=== PATIENT | male | born 1945 | race Caucasian/White ===

== ENCOUNTER 2016-05-18 08:36 | Inpatient (IN) | payer OTHER, MEDICARE ==
[~2016-05-18] VITALS: Ht 172.7 cm; Wt 145.0 kg
[2016-05-18] VITALS (10 sets, daily range): BP systolic 106–174; BP diastolic 49–76
[~2016-05-18 08:36] MED LIST: ACTOS15 MG PO; ADVAIR 250/501 DISK IH; ADVAIR HFA120 INHALA IH; ALEVE220 MG PO; AUGMENTIN500 MG PO; Advair HFA 115/21 IH; Amoxicillin PO; BACTRIM,SEPT1 TABLET PO; COMBIVENT INH14.7 GM IH; COMBIVENT RESPIM4 GM IH; COMBIVENT200 INHALA IH; DEXILANT60 MG PO; FAMOTIDINE20 M1 PO; FAMOTIDINE20 MG PO; FUROSEMIDE40 MG PO; FUROSEMIDE80 MG PO; INVOKANA300 MG PO; JANUVIA100 MG PO; KENALOG,ARISTOC15 GM PO; LANTUS 10100 UNITS/ SC; LANTUS 3 M100 UNITS/ PO; LANTUS 3 M100 UNITS/ SC; LANTUS 3 M100 UNITS1 SC; LANTUS100 UNIT/1 SQ; LASIX80 MG PO; LIPITOR40 MG PO; LOPRESSOR25 MG PO; LOSARTAN POTASS25 MG PO; Lasix PO; Lotrimin Cream TP; METOLAZONE10 MG PO; METOPROLOL SUCC25 MG PO; NAPROXEN SODIU220 MG PO; NIASPAN,SLO-N1000 MG PO; NIASPAN,SLO-NI500 MG PO; NOVOLIN,HU100 UNITS/ SC; OMEPRAZOLE40 M1 PO; PEPCID20 MG PO; PLAVIX75 MG PO; POTASSIUM CHLO10 ME3 PO; PRINIVIL10 MG PO; PROAIR HFA8.5 GM IH; Pepcid PO; SIMVASTATIN80 M1 PO; SIMVASTATIN80 MG PO; SPIRIVA1 INHALATI IH; THEO-24300 MG PO; THEO-DUR,THEOC300 MG PO; THEOPHYLLINE A300 M1 PO; TRAMADOL HCL50 MG PO; Tylenol Regular Stre PO; VENTOLIN HFA18 GM IH; ZESTRIL,PRINIVI10 MG PO; ZOLPIDEM TARTRAT5 MG PO; metoprolol PO
[2016-05-18 09:27] LABS: HEMATOCRIT 47.1 % (38.0-50.0); MCH 29.1 PG (29.0-34.0); MCHC 31.6 G/DL (30.0-36.0); MEAN PLAT.VOLUME 9.7 uM^3 (9.0-12.4); PLATELET COUNT 212 K/uL (156-360); RBC DIS.WIDTH-CV 16.9 % (11.8-14.6); RED BLOOD COUNT 5.12 M/uL (4.00-5.50); WHITE BLOOD COUNT 9.9 K/uL (4.1-10.2)
[2016-05-18 09:40] LABS: CHLORIDE 95 mEq/L (99-109); POTASSIUM 3.3 mEq/L (3.7-5.4); SODIUM 139 mEq/L (136-147)
[2016-05-18 09:41] LABS: GLUCOSE 111 mg/dL (70-99)
[2016-05-18 09:43] LABS: ANION GAP 14 MEQ/L (2-14)
[2016-05-18 09:45] LABS: GFR ESTIMATE (CALCULATED) 37 mL/min/
[2016-05-18 09:46] LABS: UREA NITROGEN (BUN) 35 mg/dL (9-23)
[2016-05-18] MEDS ORDERED: POTASSIUM CHLO20 ME2 PO (11:10)
[2016-05-18] MEDS ORDERED: SIMVASTATIN40 MG PO (11:10)
[2016-05-18] MEDS ORDERED: TYLENOL EXTRA500 MG PO (11:11)
[2016-05-18] MEDS ORDERED: THEO-DUR,THEOC300 MG PO (11:11)
[2016-05-18] MEDS ORDERED: LISINOPRIL2.5 MG PO (11:12)
[2016-05-18] MEDS ORDERED: LOSARTAN POTASS25 MG PO (11:12)
[2016-05-18] MEDS ORDERED: ADVAIR 250/501 DISK IH (11:12)
[2016-05-18 13:42] LABS: BILIRUBIN NEGATIVE; BLOOD NEGATIVE; COLOR YELLOW ((YELLOW)); GLUCOSE (STRIP) 250; KETONES NEGATIVE; LEUKOCYTES NEGATIVE; NITRITE NEGATIVE; PROTEIN (STRIP) 30; SPECIFIC GRAVITY 1.027 (1.000-1.030)
[2016-05-18 13:44] LABS: ADD MIUA? NO; UCUL ADDED? NO
[2016-05-18 16:19] LABS: POINT-OF-CARE METER ID UU13113748
[2016-05-18 16:39] LABS: METH RESISTANT S AUREUS PCR NEGATIVE (NEGATIVE)
[2016-05-18 16:40] LABS: PROBE CHECK PASS; SPECIMEN PROCESSING CONTROL PASS
[2016-05-18 17:54] LABS: MAGNESIUM 1.8 mg/dl (1.3-2.7)
[2016-05-18 18:41] LABS: INFLUENZA A VIRAL ANTIGEN POSITIVE; INFLUENZA B VIRAL ANTIGEN NEGATIVE
[2016-05-19] VITALS (9 sets, daily range): BP systolic 102–143; BP diastolic 47–79
[2016-05-19 06:12] LABS: ANION GAP 12 MEQ/L (2-14); CHLORIDE 99 MEQ/L (99-109); GFR ESTIMATE (CALCULATED) 46 mL/min/; MAGNESIUM 1.9 mg/dl (1.3-2.7); POTASSIUM 3.9 MEQ/L (3.7-5.4); SAMPLE HEMOLYSIS CHECK 0; SAMPLE ICTERIC CHECK 0; SAMPLE LIPEMIA CHECK 0; SODIUM 139 MEQ/L (136-147); UREA NITROGEN (BUN) 30 mg/dL (9-23)
[2016-05-19 06:14] LABS: EOSINOPHIL (%) 0 % (0-5); HEMATOCRIT 47.8 % (38.0-50.0); IMMATURE GRANULOCYTE (%) 1.1 % (0.0-0.7); IMMATURE GRANULOCYTE COUNT 0.1 K/uL; LYMPHOCYTE COUNT 0.8 K/uL (1.0-2.8); MCH 30.3 PG (29.0-34.0); MCHC 31.6 G/DL (30.0-36.0); MCV 95.8 FL (86-99); MEAN PLAT.VOLUME 10.4 uM^3 (9.0-12.4); MONOCYTE (%) 2.3 % (3-12); MONOCYTE COUNT 0.1 K/uL (0-0.8); NEUTROPHIL COUNT 3.8 K/uL (1.8-6.4); PLATELET COUNT 174 K/uL (156-360); RBC DIS.WIDTH-CV 16.7 % (11.8-14.6); RBC DIS.WIDTH-SD 58.5 % (39-53); RED BLOOD COUNT 4.99 M/uL (4.00-5.50)
[2016-05-19 06:18] LABS: WHITE BLOOD COUNT 4.8 K/uL (4.1-10.2)
[2016-05-19 06:19] LABS: GLUCOSE 209 mg/dL (70-99)
[2016-05-19 10:50] LABS: INTERNAL CONTROL VALID? YES
[2016-05-19 22:52] LABS: POINT-OF-CARE METER ID UU13113748
[2016-05-20] VITALS (7 sets, daily range): BP systolic 120–155; BP diastolic 58–73
[2016-05-20 06:42] LABS: ALKALINE PHOSPHATASE 53 IU/L (3-129); ANION GAP 10 MEQ/L (2-14); CHLORIDE 98 MEQ/L (99-109); GFR ESTIMATE (CALCULATED) 49 mL/min/; GLUCOSE 199 mg/dL (70-99); POTASSIUM 3.8 MEQ/L (3.7-5.4); SAMPLE HEMOLYSIS CHECK 0; SAMPLE ICTERIC CHECK 0; SAMPLE LIPEMIA CHECK 0; SODIUM 138 MEQ/L (136-147); TOTAL BILIRUBIN 0.5 MG/DL (0.0-1.0); UREA NITROGEN (BUN) 35 mg/dL (9-23)
[2016-05-20 06:43] LABS: MAGNESIUM 2.2 mg/dl (1.3-2.7)
[2016-05-20 06:53] LABS: EOSINOPHIL (%) 0 % (0-5); HEMATOCRIT 46.9 % (38.0-50.0); IMMATURE GRANULOCYTE (%) 0.5 % (0.0-0.7); LYMPHOCYTE COUNT 1.1 K/uL (1.0-2.8); MCH 29.1 PG (29.0-34.0); MCHC 30.9 G/DL (30.0-36.0); MCV 94.2 FL (86-99); MONOCYTE (%) 12.3 % (3-12); NEUTROPHIL (%) 74.2 % (45-76); NEUTROPHIL COUNT 6.3 K/uL (1.8-6.4); PLATELET COUNT 163 K/uL (156-360); RBC DIS.WIDTH-CV 16.1 % (11.8-14.6); RBC DIS.WIDTH-SD 55.2 % (39-53); RED BLOOD COUNT 4.98 M/uL (4.00-5.50)
[2016-05-20 06:54] LABS: WHITE BLOOD COUNT 8.5 K/uL (4.1-10.2)
[2016-05-20 21:26] LABS: POINT-OF-CARE METER ID UU14162636
[2016-05-21] VITALS: BP 132/63
[2016-05-21 03:58] VITALS: BP 152/91
[2016-05-21 07:28] LABS: ALKALINE PHOSPHATASE 59 IU/L (3-129); ANION GAP 8 MEQ/L (2-14); CHLORIDE 98 MEQ/L (99-109); GFR ESTIMATE (CALCULATED) > 59 mL/min/; GLUCOSE 130 mg/dL (70-99); MAGNESIUM 2.1 mg/dl (1.3-2.7); POTASSIUM 3.6 MEQ/L (3.7-5.4); SAMPLE HEMOLYSIS CHECK 0; SAMPLE ICTERIC CHECK 0; SAMPLE LIPEMIA CHECK 0; SODIUM 140 MEQ/L (136-147); TOTAL BILIRUBIN 0.5 MG/DL (0.0-1.0); UREA NITROGEN (BUN) 28 mg/dL (9-23)
[2016-05-21 07:31] LABS: EOSINOPHIL (%) 0.6 % (0-5); HEMATOCRIT 47.6 % (38.0-50.0); IMMATURE GRANULOCYTE (%) 0.4 % (0.0-0.7); MCHC 32.1 G/DL (30.0-36.0); MCV 93.3 FL (86-99); MEAN PLAT.VOLUME 10.7 uM^3 (9.0-12.4); MONOCYTE (%) 12.2 % (3-12); MONOCYTE COUNT 0.9 K/uL (0-0.8); NEUTROPHIL COUNT 4.2 K/uL (1.8-6.4); PLATELET COUNT 171 K/uL (156-360); RBC DIS.WIDTH-CV 15.8 % (11.8-14.6); RBC DIS.WIDTH-SD 53.9 % (39-53); WHITE BLOOD COUNT 7.2 K/uL (4.1-10.2)
[2016-05-21 08:12] VITALS: BP 120/72
[2016-05-21 11:32] VITALS: BP 120/70
[2016-05-21 15:55] VITALS: BP 140/68
[2016-05-21 23:09] LABS: POINT-OF-CARE METER ID UU14174225
[2016-05-21 23:48] VITALS: BP 141/67
[2016-05-22 06:52] LABS: HEMATOCRIT 49.9 % (38.0-50.0); MCH 29.4 PG (29.0-34.0); MCHC 31.3 G/DL (30.0-36.0); MEAN PLAT.VOLUME 9.8 uM^3 (9.0-12.4); PLATELET COUNT 135 K/uL (156-360); RBC DIS.WIDTH-CV 15.8 % (11.8-14.6); RBC DIS.WIDTH-SD 53.9 % (39-53); RED BLOOD COUNT 5.31 M/uL (4.00-5.50); WHITE BLOOD COUNT 7.6 K/uL (4.1-10.2)
[2016-05-22 06:58] LABS: BASOPHIL COUNT 0.1 K/uL (0-0.1); EOSINOPHIL (%) 0.5 % (0-5); IMMATURE GRANULOCYTE (%) 0.5 % (0.0-0.7); LYMPHOCYTE COUNT 2.5 K/uL (1.0-2.8); MONOCYTE (%) 10.1 % (3-12); MONOCYTE COUNT 0.8 K/uL (0-0.8); NEUTROPHIL (%) 54.8 % (45-76); NEUTROPHIL COUNT 4.2 K/uL (1.8-6.4)
[2016-05-22 07:04] LABS: ANION GAP 10 MEQ/L (2-14); CHLORIDE 100 MEQ/L (99-109); GFR ESTIMATE (CALCULATED) > 59 mL/min/; GLUCOSE 137 mg/dL (70-99); POTASSIUM 3.9 MEQ/L (3.7-5.4); SAMPLE HEMOLYSIS CHECK 0; SAMPLE ICTERIC CHECK 0; SAMPLE LIPEMIA CHECK 0; SODIUM 141 MEQ/L (136-147); UREA NITROGEN (BUN) 24 mg/dL (9-23)
[2016-05-22 08:00] VITALS: BP 120/62
[2016-05-22 11:14] LABS: POINT-OF-CARE METER ID UU14174225
[2016-05-22 11:22] VITALS: BP 120/68
[2016-05-22 15:35] VITALS: BP 155/73
[2016-05-22 19:27] VITALS: BP 154/72
[2016-05-22 23:46] VITALS: BP 152/72
[2016-05-23 06:52] LABS: EOSINOPHIL (%) 0.9 % (0-5); EOSINOPHIL COUNT 0.1 K/uL (0-0.3); HEMATOCRIT 48.2 % (38.0-50.0); IMMATURE GRANULOCYTE (%) 0.5 % (0.0-0.7); LYMPHOCYTE COUNT 2.5 K/uL (1.0-2.8); MCH 29.6 PG (29.0-34.0); MCHC 31.7 G/DL (30.0-36.0); MCV 93.2 FL (86-99); MEAN PLAT.VOLUME 10.2 uM^3 (9.0-12.4); MONOCYTE (%) 9.6 % (3-12); MONOCYTE COUNT 0.8 K/uL (0-0.8); NEUTROPHIL (%) 57.2 % (45-76); NEUTROPHIL COUNT 4.6 K/uL (1.8-6.4); PLATELET COUNT 156 K/uL (156-360); RBC DIS.WIDTH-CV 15.3 % (11.8-14.6); RBC DIS.WIDTH-SD 52.5 % (39-53); RED BLOOD COUNT 5.17 M/uL (4.00-5.50)
[2016-05-23 07:19] LABS: ANION GAP 7 MEQ/L (2-14); CHLORIDE 98 MEQ/L (99-109); GFR ESTIMATE (CALCULATED) > 59 mL/min/; GLUCOSE 164 mg/dL (70-99); SAMPLE HEMOLYSIS CHECK 0; SAMPLE ICTERIC CHECK 0; SAMPLE LIPEMIA CHECK 0; SODIUM 141 MEQ/L (136-147); UREA NITROGEN (BUN) 25 mg/dL (9-23)
[2016-05-23 07:51] VITALS: BP 139/73
[2016-05-23 11:15] VITALS: BP 130/78
[2016-05-23] MEDS ORDERED: KETOCONAZOLE60 GM TP (14:41)
[2016-05-23] MEDS ORDERED: SPIRIVA RESPIMAT4 GM IH (14:41)
[2016-05-23] MEDS ORDERED: CEFDINIR300 MG PO (14:47)
[2016-05-23] MEDS ORDERED: PREDNISONE20 MG PO (14:50)
[2016-05-23] MEDS ORDERED: ROBITUSSIN100 MG/5 M PO (14:56)
== END 2016-05-23 16:11 | disposition home or self-care (01) | DRG 193 ==
LOC: EME → EDBD 08:36 → EME 08:36 → 4WEST 14:00 → 5SOUTH 14:00 → EDOF 14:00 → 4WEST 15:08 → 5SOUTH 05-20 21:22
PROVIDERS: Emergency Medicine; Hospitalist; Internal Medicine; Internal Medicine Nephrology
PROC: 5A09357 Assistance with Respiratory Ventilation, Less than 24 Consecutive Hours, Continuous Positive Airway Pressure (ICD-10-PCS; principal; 2016-05-19)
DX: J10.00 Influenza due to other identified influenza virus with unspecified type of pneumonia (principal); J44.0 Chronic obstructive pulmonary disease with (acute) lower respiratory infection; J18.9 Pneumonia, unspecified organism; J96.20 Acute and chronic respiratory failure, unspecified whether with hypoxia or hypercapnia; N17.9 Acute kidney failure, unspecified; J44.1 Chronic obstructive pulmonary disease with (acute) exacerbation; I13.0 Hypertensive heart and chronic kidney disease with heart failure and stage 1 through stage 4 chronic kidney disease, or unspecified chronic kidney disease; I50.9 Heart failure, unspecified; E11.22 Type 2 diabetes mellitus with diabetic chronic kidney disease; N18.3 Chronic kidney disease, stage 3 (moderate); I87.2 Venous insufficiency (chronic) (peripheral); L97.819 Non-pressure chronic ulcer of other part of right lower leg with unspecified severity; E87.6 Hypokalemia; E11.40 Type 2 diabetes mellitus with diabetic neuropathy, unspecified; E78.5 Hyperlipidemia, unspecified; I25.10 Atherosclerotic heart disease of native coronary artery without angina pectoris; J45.909 Unspecified asthma, uncomplicated; K21.9 Gastro-esophageal reflux disease without esophagitis; E66.01 Morbid (severe) obesity due to excess calories; G47.33 Obstructive sleep apnea (adult) (pediatric); I95.9 Hypotension, unspecified; F17.200 Nicotine dependence, unspecified, uncomplicated; I89.0 Lymphedema, not elsewhere classified; L30.8 Other specified dermatitis; Z95.5 Presence of coronary angioplasty implant and graft; Z99.81 Dependence on supplemental oxygen; I25.2 Old myocardial infarction; Z95.0 Presence of cardiac pacemaker; Z79.02 Long term (current) use of antithrombotics/antiplatelets; Z79.4 Long term (current) use of insulin; Z68.42 Body mass index [BMI] 45.0-49.9, adult
CPT/HCPCS: 71010; 71020; 80048; 80053; 81003; 82948; 83605; 83735; 84100; 85025; 85027; 87040; 87070; 87205; 87449; 87502; 87641; 93005; 94640; 94640 76; 94660; 94760; 94799; 99202; 99281; 99285; J0456; J0696; J1644; J1815; J2543; J2920; J2930; J3370; J7030; J7050; J7512; S0028

== ENCOUNTER 2016-05-30 10:41 | Inpatient (IN) | payer OTHER, MEDICARE ==
[~2016-05-30] VITALS: Ht 172.7 cm; Wt 137.4 kg
[~2016-05-30 10:41] MED LIST changes: +CEFDINIR300 MG PO; +KETOCONAZOLE60 GM TP; +LISINOPRIL2.5 MG PO; +POTASSIUM CHLO20 ME2 PO; +PREDNISONE20 MG PO; +ROBITUSSIN100 MG/5 M PO; +SIMVASTATIN40 MG PO; +SPIRIVA RESPIMAT4 GM IH; +TYLENOL EXTRA500 MG PO
[2016-05-30 12:29] LABS: EOSINOPHIL (%) 0.4 % (0-5); EOSINOPHIL COUNT 0.1 K/uL (0-0.3); HEMATOCRIT 51.3 % (38.0-50.0); IMMATURE GRANULOCYTE (%) 0.5 % (0.0-0.7); IMMATURE GRANULOCYTE COUNT 1.2 K/uL; LYMPHOCYTE COUNT 1.7 K/uL (1.0-2.8); MCH 29.4 PG (29.0-34.0); MCHC 32.4 G/DL (30.0-36.0); MEAN PLAT.VOLUME 10.4 uM^3 (9.0-12.4); MONOCYTE (%) 6.3 % (3-12); MONOCYTE COUNT 1.4 K/uL (0-0.8); NEUTROPHIL (%) 85.2 % (45-76); NEUTROPHIL COUNT 19.1 K/uL (1.8-6.4); RBC DIS.WIDTH-CV 16.3 % (11.8-14.6); RBC DIS.WIDTH-SD 53.3 % (39-53); RED BLOOD COUNT 5.64 M/uL (4.00-5.50)
[2016-05-30 12:30] LABS: PLATELET COUNT 268 K/uL (156-360); WHITE BLOOD COUNT 22.5 K/uL (4.1-10.2)
[2016-05-30 12:38] LABS: CHLORIDE 96 mEq/L (99-109); SODIUM 139 mEq/L (136-147)
[2016-05-30 12:40] LABS: GLUCOSE 102 mg/dL (70-99)
[2016-05-30 12:41] LABS: ANION GAP 14 MEQ/L (2-14)
[2016-05-30 12:43] LABS: GFR ESTIMATE (CALCULATED) 46 mL/min/
[2016-05-30 12:44] LABS: UREA NITROGEN (BUN) 33 mg/dL (9-23)
[2016-05-30 12:46] LABS: CREATINE KINASE 73 IU/L (1-294)
[2016-05-30 12:47] LABS: TROP-I INTERPRETATION NEGATIVE; TROPONIN-I 0.05 ng/mL (0.0-0.30)
[2016-05-30 13:23] LABS: ADD MIUA? YES; BILIRUBIN NEGATIVE; BLOOD NEGATIVE; COLOR YELLOW ((YELLOW)); GLUCOSE (STRIP) 100; KETONES NEGATIVE; LEUKOCYTES TRACE; NITRITE NEGATIVE; PROTEIN (STRIP) NEGATIVE; SPECIFIC GRAVITY 1.014 (1.000-1.030); UROBILINOGEN 0.2 MG/DL (0.2-1.0)
[2016-05-30 13:25] LABS: HEMATOLOGY COMMENT 1 SMEAR COMPATIBLE; USER ID CL
[2016-05-30 14:11] LABS: BACTERIA 1+ /HPF; CASTS NONE SEEN /LPF; CRYSTALS NONE SEEN; EPITHELIAL CELLS NONE SEEN /HPF; MUCUS NONE SEEN /LPF; RED BLOOD CELLS 0-5 /HPF (0-5); UCUL ADDED? NO; WHITE BLOOD CELLS 0-5 /HPF (0-5)
[2016-05-30] MEDS ORDERED: PREDNISONE20 MG PO (14:59)
[2016-05-30 15:19] LABS: BASE EXCESS 9.2 mEq/L (-3 to +3); BICARBONATE 37.3 mEq/L (22-26); CARBOXY HGB 3.2 % (0-5); COMMENTS - BLOOD GASES +C; DEVICE HFNC; O2 FLOW 10 L/MIN; PCO2 63 mm Hg (35-45); PO2 104 mm Hg (80-100); SITE RR +A; TOTAL RESP RATE 18 resp/min; pH 7.38 (7.35-7.45)
[2016-05-30 17:00] VITALS: BP 128/83
[2016-05-30 17:25] LABS: POINT-OF-CARE METER ID UU13113781; POINT-OF-CARE USER ID NUTSLF44
[2016-05-30 19:15] VITALS: BP 122/76
[2016-05-30 21:29] LABS: POINT-OF-CARE METER ID UU13113698
[2016-05-30 23:51] VITALS: BP 115/58
[2016-05-31 04:05] VITALS: BP 110/60
[2016-05-31 07:01] LABS: EOSINOPHIL (%) 0 % (0-5); HEMATOCRIT 47.2 % (38.0-50.0); IMMATURE GRANULOCYTE (%) 0.4 % (0.0-0.7); LYMPHOCYTE COUNT 1.6 K/uL (1.0-2.8); MCH 29.2 PG (29.0-34.0); MCHC 31.6 G/DL (30.0-36.0); MCV 92.5 FL (86-99); MEAN PLAT.VOLUME 10.4 uM^3 (9.0-12.4); MONOCYTE (%) 2.9 % (3-12); MONOCYTE COUNT 0.3 K/uL (0-0.8); NEUTROPHIL COUNT 8.5 K/uL (1.8-6.4); PLATELET COUNT 194 K/uL (156-360); RBC DIS.WIDTH-CV 15.7 % (11.8-14.6); RBC DIS.WIDTH-SD 53.4 % (39-53); WHITE BLOOD COUNT 10.5 K/uL (4.1-10.2)
[2016-05-31 07:17] VITALS: BP 103/50
[2016-05-31 07:21] LABS: ALKALINE PHOSPHATASE 65 IU/L (3-129); ANION GAP 11 MEQ/L (2-14); CHLORIDE 94 MEQ/L (99-109); GFR ESTIMATE (CALCULATED) 49 mL/min/; POTASSIUM 3.9 MEQ/L (3.7-5.4); SAMPLE HEMOLYSIS CHECK 0; SAMPLE ICTERIC CHECK 0; SAMPLE LIPEMIA CHECK 0; SODIUM 135 MEQ/L (136-147); TOTAL BILIRUBIN 0.6 MG/DL (0.0-1.0); UREA NITROGEN (BUN) 41 mg/dL (9-23)
[2016-05-31 07:23] LABS: GLUCOSE 253 mg/dL (70-99)
[2016-05-31 07:52] LABS: INTERNAL CONTROL VALID? YES
[2016-05-31 07:57] LABS: POINT-OF-CARE METER ID UU13113698; POINT-OF-CARE USER ID ENVKC36
[2016-05-31 11:53] LABS: POINT-OF-CARE METER ID UU13113781
[2016-05-31 11:58] VITALS: BP 123/58
[2016-05-31 16:27] LABS: POINT-OF-CARE METER ID UU13113781; POINT-OF-CARE USER ID ENVKC36
[2016-05-31 17:17] VITALS: BP 122/57
[2016-05-31 20:53] LABS: POINT-OF-CARE METER ID UU14174216
[2016-05-31 20:54] VITALS: BP 113/59
[2016-05-31 23:28] VITALS: BP 122/57
[2016-06-01 03:57] VITALS: BP 140/59
[2016-06-01 06:36] LABS: HEMATOCRIT 48.1 % (38.0-50.0); MCH 29.6 PG (29.0-34.0); MCHC 31.6 G/DL (30.0-36.0); MCV 93.8 FL (86-99); MEAN PLAT.VOLUME 10.8 uM^3 (9.0-12.4); PLATELET COUNT 205 K/uL (156-360); RBC DIS.WIDTH-CV 15.6 % (11.8-14.6); RBC DIS.WIDTH-SD 53.5 % (39-53); RED BLOOD COUNT 5.13 M/uL (4.00-5.50); WHITE BLOOD COUNT 9.9 K/uL (4.1-10.2)
[2016-06-01 06:59] LABS: ANION GAP 10 MEQ/L (2-14); CHLORIDE 94 MEQ/L (99-109); GFR ESTIMATE (CALCULATED) 53 mL/min/; GLUCOSE 246 mg/dL (70-99); SAMPLE HEMOLYSIS CHECK 0; SAMPLE ICTERIC CHECK 0; SAMPLE LIPEMIA CHECK 0; SODIUM 137 MEQ/L (136-147); UREA NITROGEN (BUN) 41 mg/dL (9-23)
[2016-06-01 07:43] LABS: POINT-OF-CARE USER ID ENVKC36
[2016-06-01 08:00] VITALS: BP 128/63
[2016-06-01] MEDS ORDERED: DELTASONE20 M1 PO (08:14)
[2016-06-01] MEDS ORDERED: MEDROL DOSEPAK4 MG PO (08:15)
[2016-06-01] MEDS ORDERED: LEVAQUIN750 MG PO (08:16)
[2016-06-01 11:33] LABS: POINT-OF-CARE USER ID ENVKC36
== END 2016-06-01 13:30 | disposition home or self-care (01) | DRG 871 ==
LOC: EME 10:41 → 4EAST 14:25 → EDOF 14:25 → 4EAST 16:55
PROVIDERS: Emergency Medicine; Hospitalist; Internal Medicine
PROC: 5A09357 Assistance with Respiratory Ventilation, Less than 24 Consecutive Hours, Continuous Positive Airway Pressure (ICD-10-PCS; principal; 2016-05-31)
DX: A41.9 Sepsis, unspecified organism (principal); J96.21 Acute and chronic respiratory failure with hypoxia; J18.9 Pneumonia, unspecified organism; J44.1 Chronic obstructive pulmonary disease with (acute) exacerbation; N17.9 Acute kidney failure, unspecified; J44.0 Chronic obstructive pulmonary disease with (acute) lower respiratory infection; I83.228 Varicose veins of left lower extremity with both ulcer of other part of lower extremity and inflammation; Z68.42 Body mass index [BMI] 45.0-49.9, adult; S81.802A Unspecified open wound, left lower leg, initial encounter; E11.22 Type 2 diabetes mellitus with diabetic chronic kidney disease; N18.3 Chronic kidney disease, stage 3 (moderate); I12.9 Hypertensive chronic kidney disease with stage 1 through stage 4 chronic kidney disease, or unspecified chronic kidney disease; I87.8 Other specified disorders of veins; G47.33 Obstructive sleep apnea (adult) (pediatric); Z95.0 Presence of cardiac pacemaker; I25.10 Atherosclerotic heart disease of native coronary artery without angina pectoris; Z95.1 Presence of aortocoronary bypass graft; F17.200 Nicotine dependence, unspecified, uncomplicated; Z99.81 Dependence on supplemental oxygen; K21.9 Gastro-esophageal reflux disease without esophagitis; E66.01 Morbid (severe) obesity due to excess calories
CPT/HCPCS: 36600; 71010; 71020; 71250; 80048; 80048 91; 80053; 81003; 82550; 82803; 82948; 83605; 83880; 84484; 85025; 85027; 87040; 87070; 87205; 87449; 93005; 94640; 94640 76; 94660; 94760; 94799; 99202; 99281; 99285; J0692; J0696; J1644; J1815; J2930; J3370; J7030; J7050

== ENCOUNTER 2016-08-05 14:49 | Inpatient (IN) | payer OTHER, MEDICARE ==
[~2016-08-05] VITALS: Ht 172.7 cm; Wt 139.8 kg
[~2016-08-05 14:49] MED LIST changes: +DELTASONE20 M1 PO; +LEVAQUIN750 MG PO; +MEDROL DOSEPAK4 MG PO
[2016-08-05 15:42] LABS: HEMATOCRIT 48.8 % (38.0-50.0); MCH 28.8 PG (29.0-34.0); MCHC 32.4 G/DL (30.0-36.0); MCV 89.1 FL (86-99); MEAN PLAT.VOLUME 9.6 uM^3 (9.0-12.4); PLATELET COUNT 291 K/uL (156-360); RBC DIS.WIDTH-CV 17.5 % (11.8-14.6); RBC DIS.WIDTH-SD 55.4 % (39-53); RED BLOOD COUNT 5.48 M/uL (4.00-5.50); WHITE BLOOD COUNT 19.9 K/uL (4.1-10.2)
[2016-08-05 16:03] LABS: CHLORIDE 92 mEq/L (99-109); POTASSIUM 2.9 mEq/L (3.7-5.4); SODIUM 137 mEq/L (136-147)
[2016-08-05 16:05] LABS: GLUCOSE 103 mg/dL (70-99)
[2016-08-05 16:06] LABS: ANION GAP 14 MEQ/L (2-14)
[2016-08-05 16:07] LABS: TOTAL BILIRUBIN 1.2 mg/dL (0.0-1.0)
[2016-08-05 16:09] LABS: ALKALINE PHOSPHATASE 71 IU/L (3-129); GFR ESTIMATE (CALCULATED) 35 mL/min/
[2016-08-05 16:10] LABS: UREA NITROGEN (BUN) 52 mg/dL (9-23)
[2016-08-05 16:12] LABS: LIPASE 10 U/L (1.0-51.0)
[2016-08-05 16:18] LABS: TROP-I INTERPRETATION NEGATIVE; TROPONIN-I 0.07 ng/mL (0.0-0.30)
[2016-08-05] MEDS ORDERED: SPIRIVA1 INHALATI IH (16:46)
[2016-08-05 17:42] LABS: COMMENTS - BLOOD GASES A+C+; DEVICE NC; O2 FLOW 4 L/MIN; SITE RR; TOTAL RESP RATE 18 resp/min
[2016-08-05 17:48] LABS: PCO2 47 mm Hg (35-45); PO2 79 mm Hg (80-100); pH 7.46 (7.35-7.45)
[2016-08-05 17:49] LABS: BASE EXCESS 8.2 mEq/L (-3 to +3); BICARBONATE 34.8 mEq/L (22-26); HEMOGLOBIN 15.1 (12.5-16.6); METHEMOGLOBIN 0.9 % (0-1.5)
[2016-08-05 17:50] LABS: CARBOXY HGB 5.1 % (0-5)
[2016-08-05 17:57] LABS: INFLUENZA A VIRAL ANTIGEN NEGATIVE; INFLUENZA B VIRAL ANTIGEN NEGATIVE
[2016-08-05 20:09] VITALS: BP 117/67
[2016-08-06] VITALS (8 sets, daily range): BP systolic 105–131; BP diastolic 53–71
[2016-08-06 07:20] LABS: EOSINOPHIL (%) 0.7 % (0-5); EOSINOPHIL COUNT 0.1 K/uL (0-0.3); HEMATOCRIT 47.5 % (38.0-50.0); IMMATURE GRANULOCYTE (%) 0.8 % (0.0-0.7); IMMATURE GRANULOCYTE COUNT 0.1 K/uL; INSTRUMENT ABS NEUTROPHIL CT 11.1 K/uL; MCH 28.2 PG (29.0-34.0); MCHC 30.9 G/DL (30.0-36.0); MCV 91.2 FL (86-99); MONOCYTE (%) 11.5 % (3-12); MONOCYTE COUNT 1.9 K/uL (0-0.8); NEUTROPHIL (%) 68.5 % (45-76); NEUTROPHIL COUNT 11.1 K/uL (1.8-6.4); NRBC (%) 0.1 /100 WBC (0-0); PLATELET COUNT 239 K/uL (156-360); RBC DIS.WIDTH-CV 17.1 % (11.8-14.6); RBC DIS.WIDTH-SD 57.8 % (39-53); RED BLOOD COUNT 5.21 M/uL (4.00-5.50); WHITE BLOOD COUNT 16.3 K/uL (4.1-10.2)
[2016-08-06 07:44] LABS: ANION GAP 11 MEQ/L (2-14); CHLORIDE 97 MEQ/L (99-109); GFR ESTIMATE (CALCULATED) 40 mL/min/; GLUCOSE 153 mg/dL (70-99); SAMPLE HEMOLYSIS CHECK 0; SAMPLE ICTERIC CHECK 0; SAMPLE LIPEMIA CHECK 0; SODIUM 135 MEQ/L (136-147); UREA NITROGEN (BUN) 49 mg/dL (9-23)
[2016-08-06 07:46] LABS: POTASSIUM 3.8 MEQ/L (3.7-5.4)
[2016-08-06 09:37] LABS: ADD MIUA? YES; BILIRUBIN NEGATIVE; BLOOD NEGATIVE; COLOR YELLOW ((YELLOW)); GLUCOSE (STRIP) >=500; KETONES NEGATIVE; LEUKOCYTES TRACE; NITRITE NEGATIVE; PROTEIN (STRIP) NEGATIVE; SPECIFIC GRAVITY 1.009 (1.000-1.030); UROBILINOGEN 0.2 MG/DL (0.2-1.0)
[2016-08-06 09:58] LABS: BACTERIA RARE /HPF; EPITHELIAL CELLS RARE /HPF; HYALINE CASTS 0-5 /LPF; MUCUS TRACE /LPF; UCUL ADDED? NO; WHITE BLOOD CELLS 0-5 /HPF (0-5)
[2016-08-06 15:40] LABS: C DIFF TOXIN NEGATIVE (NEGATIVE)
[2016-08-06 15:43] LABS: PROBE CHECK PASS; SPECIMEN PROCESSING CONTROL PASS
[2016-08-07 03:29] VITALS: BP 136/69
[2016-08-07 07:26] LABS: ANION GAP 9 MEQ/L (2-14); CHLORIDE 96 MEQ/L (99-109); GFR ESTIMATE (CALCULATED) 45 mL/min/; GLUCOSE 206 mg/dL (70-99); HEMATOCRIT 46.2 % (38.0-50.0); MCH 28.3 PG (29.0-34.0); MCV 91.5 FL (86-99); MEAN PLAT.VOLUME 9.8 uM^3 (9.0-12.4); PLATELET COUNT 217 K/uL (156-360); POTASSIUM 3.9 MEQ/L (3.7-5.4); RBC DIS.WIDTH-CV 16.5 % (11.8-14.6); RBC DIS.WIDTH-SD 55.8 % (39-53); RED BLOOD COUNT 5.05 M/uL (4.00-5.50); SAMPLE HEMOLYSIS CHECK 0; SAMPLE ICTERIC CHECK 0; SAMPLE LIPEMIA CHECK 0; SODIUM 137 MEQ/L (136-147); UREA NITROGEN (BUN) 38 mg/dL (9-23)
[2016-08-07 07:41] LABS: WHITE BLOOD COUNT 8.9 K/uL (4.1-10.2)
[2016-08-07 07:54] VITALS: BP 129/64
[2016-08-07 11:59] VITALS: BP 128/62
[2016-08-07 16:00] VITALS: BP 129/64
[2016-08-07 20:00] VITALS: BP 178/81
[2016-08-08 00:52] VITALS: BP 127/61
[2016-08-08 03:34] VITALS: BP 125/60
[2016-08-08 07:06] LABS: EOSINOPHIL (%) 0 % (0-5); IMMATURE GRANULOCYTE (%) 0.6 % (0.0-0.7); IMMATURE GRANULOCYTE COUNT 0.1 K/uL; INSTRUMENT ABS NEUTROPHIL CT 7.3 K/uL; LYMPHOCYTE COUNT 1.1 K/uL (1.0-2.8); MCH 28.3 PG (29.0-34.0); MCHC 31.7 G/DL (30.0-36.0); MCV 89.3 FL (86-99); MEAN PLAT.VOLUME 10.5 uM^3 (9.0-12.4); MONOCYTE (%) 3.1 % (3-12); MONOCYTE COUNT 0.3 K/uL (0-0.8); NEUTROPHIL (%) 83.3 % (45-76); NEUTROPHIL COUNT 7.3 K/uL (1.8-6.4); PLATELET COUNT 281 K/uL (156-360); RBC DIS.WIDTH-CV 15.8 % (11.8-14.6); RBC DIS.WIDTH-SD 51.9 % (39-53); RED BLOOD COUNT 5.15 M/uL (4.00-5.50); WHITE BLOOD COUNT 8.8 K/uL (4.1-10.2)
[2016-08-08 07:20] LABS: ANION GAP 9 MEQ/L (2-14); CHLORIDE 96 MEQ/L (99-109); GFR ESTIMATE (CALCULATED) 58 mL/min/; GLUCOSE 197 mg/dL (70-99); SAMPLE HEMOLYSIS CHECK 0; SAMPLE ICTERIC CHECK 0; SAMPLE LIPEMIA CHECK 0; SODIUM 138 MEQ/L (136-147); UREA NITROGEN (BUN) 34 mg/dL (9-23)
[2016-08-08 08:02] VITALS: BP 134/68
[2016-08-08 10:58] VITALS: BP 132/62
[2016-08-08] MEDS ORDERED: CEFTIN500 MG PO (15:57)
[2016-08-08] MEDS ORDERED: PREDNISONE10 MG PO (16:02)
[2016-08-08 16:30] VITALS: BP 175/72
[2016-08-10] MEDS ORDERED: CEFTIN500 MG PO (14:39)
[2016-08-10] MEDS ORDERED: VENTOLIN HFA18 GM IH (14:40)
[2016-08-10] MEDS ORDERED: DEXILANT60 MG PO (14:40)
[2016-08-10] MEDS ORDERED: PREDNISONE PO (14:41)
[2016-08-10] MEDS ORDERED: PLAVIX75 MG PO (14:42)
== END 2016-08-08 17:30 | disposition home health service (06) | DRG 190 ==
LOC: EME 14:49 → EDOF 17:11 → 5SOUTH 18:38 → EDOF 18:38 → 5SOUTH 19:43
PROVIDERS: Emergency Medicine; Hospitalist; Internal Medicine; Internal Medicine Nephrology; Nurse Practitioner Adult Health; Nurse Practitioner Family
DX: J44.0 Chronic obstructive pulmonary disease with (acute) lower respiratory infection (principal); J18.9 Pneumonia, unspecified organism; J20.9 Acute bronchitis, unspecified; R91.8 Other nonspecific abnormal finding of lung field; K52.9 Noninfective gastroenteritis and colitis, unspecified; N17.9 Acute kidney failure, unspecified; I12.9 Hypertensive chronic kidney disease with stage 1 through stage 4 chronic kidney disease, or unspecified chronic kidney disease; N18.3 Chronic kidney disease, stage 3 (moderate); E11.22 Type 2 diabetes mellitus with diabetic chronic kidney disease; J44.1 Chronic obstructive pulmonary disease with (acute) exacerbation; J45.909 Unspecified asthma, uncomplicated; J96.10 Chronic respiratory failure, unspecified whether with hypoxia or hypercapnia; Z99.81 Dependence on supplemental oxygen; N28.1 Cyst of kidney, acquired; D72.829 Elevated white blood cell count, unspecified; E87.6 Hypokalemia; E86.0 Dehydration; E66.01 Morbid (severe) obesity due to excess calories; Z68.42 Body mass index [BMI] 45.0-49.9, adult; I25.10 Atherosclerotic heart disease of native coronary artery without angina pectoris; I25.2 Old myocardial infarction; Z95.1 Presence of aortocoronary bypass graft; E11.65 Type 2 diabetes mellitus with hyperglycemia; K21.9 Gastro-esophageal reflux disease without esophagitis; G47.33 Obstructive sleep apnea (adult) (pediatric); I87.2 Venous insufficiency (chronic) (peripheral); N47.1 Phimosis; F17.210 Nicotine dependence, cigarettes, uncomplicated; Z71.6 Tobacco abuse counseling; I50.9 Heart failure, unspecified; E78.5 Hyperlipidemia, unspecified; K76.0 Fatty (change of) liver, not elsewhere classified; K40.20 Bilateral inguinal hernia, without obstruction or gangrene, not specified as recurrent; Z95.0 Presence of cardiac pacemaker; Z95.5 Presence of coronary angioplasty implant and graft; Z79.02 Long term (current) use of antithrombotics/antiplatelets; Z79.4 Long term (current) use of insulin
CPT/HCPCS: 36600; 71020; 71250; 74176; 76770; 80048; 80053; 80198; 81003; 82570; 82803; 82948; 83605; 83690; 83880; 84156; 84484; 85025; 85027; 87493; 87502; 93005; 93970; 94640; 94640 76; 94660; 94799; 99202; 99281; 99285; J0456; J0696; J1644; J1815; J2270; J2405; J2543; J2930; J7030; J7040; J7050

== ENCOUNTER → 2016-08-14 | Outpatient (CLI) | payer OTHER, MEDICARE ==
[~2016-08-14] VITALS: Ht 172.7 cm; Wt 139.8 kg
[~2016-08-14] MED LIST changes: +CEFTIN500 MG PO; +PREDNISONE PO; +PREDNISONE10 MG PO
[2016-08-14 14:49] LABS: PROTHROMBIN TIME 10.3 (9.2-11.2); PTT 27.8 (25-32)
[2016-08-14 14:50] LABS: HEMATOCRIT 51.4 % (38.0-50.0); MCH 28.4 PG (29.0-34.0); MCHC 31.9 G/DL (30.0-36.0); MCV 89.1 FL (86-99); MEAN PLAT.VOLUME 9.1 uM^3 (9.0-12.4); NRBC (%) 0.1 /100 WBC (0-0); PLATELET COUNT 250 K/uL (156-360); RBC DIS.WIDTH-CV 17.1 % (11.8-14.6); RED BLOOD COUNT 5.77 M/uL (4.00-5.50)
[2016-08-14 14:51] LABS: WHITE BLOOD COUNT 18.8 K/uL (4.1-10.2)
[2016-08-14 15:14] LABS: POINT-OF-CARE METER ID UU13113694
[2016-08-14 17:31] LABS: POINT-OF-CARE METER ID UU13113675; POINT-OF-CARE USER ID 515036437
== END | disposition home or self-care (01) ==
LOC: AMB 13:37
PROVIDERS: Internal Medicine Pulmonary Disease
PROC: 0B988ZX Drainage of Left Upper Lobe Bronchus, Via Natural or Artificial Opening Endoscopic, Diagnostic (ICD-10-PCS; principal; 2016-08-14)
DX: J40 Bronchitis, not specified as acute or chronic (principal); R06.02 Shortness of breath; J44.9 Chronic obstructive pulmonary disease, unspecified; E11.9 Type 2 diabetes mellitus without complications; I25.10 Atherosclerotic heart disease of native coronary artery without angina pectoris; E66.9 Obesity, unspecified; G47.33 Obstructive sleep apnea (adult) (pediatric)
CPT/HCPCS: 71010; 82948; 85027; 85610; 85730; 87070; 87077; 87116; 87205; 87206; J3010

== ENCOUNTER 2016-08-23 14:32 | Observation (INO) | payer OTHER, MEDICARE ==
[~2016-08-23] VITALS: Ht 172.7 cm; Wt 132.0 kg
[2016-08-23 15:20] LABS: HEMATOCRIT 49.7 % (38.0-50.0); MCH 28.6 PG (29.0-34.0); MCHC 32.2 G/DL (30.0-36.0); MCV 88.9 FL (86-99); MEAN PLAT.VOLUME 9.7 uM^3 (9.0-12.4); PLATELET COUNT 252 K/uL (156-360); RBC DIS.WIDTH-CV 16.5 % (11.8-14.6); RBC DIS.WIDTH-SD 53.7 % (39-53); RED BLOOD COUNT 5.59 M/uL (4.00-5.50); WHITE BLOOD COUNT 15.5 K/uL (4.1-10.2)
[2016-08-23 15:29] LABS: CHLORIDE 93 mEq/L (99-109); POTASSIUM 2.8 mEq/L (3.7-5.4); SODIUM 138 mEq/L (136-147)
[2016-08-23 15:30] LABS: GLUCOSE 146 mg/dL (70-99)
[2016-08-23 15:32] LABS: ANION GAP 18 MEQ/L (2-14)
[2016-08-23 15:34] LABS: GFR ESTIMATE (CALCULATED) 42 mL/min/
[2016-08-23 15:35] LABS: UREA NITROGEN (BUN) 34 mg/dL (9-23)
[2016-08-23 15:38] LABS: D-DIMER ELISA 0.68 mg/L FEU (< 0.57); PROTHROMBIN TIME 10.5 (9.2-11.2); PTT 33.7 (25-32)
[2016-08-23 15:42] LABS: TROP-I INTERPRETATION NEGATIVE; TROPONIN-I 0.07 ng/mL (0.0-0.30)
[2016-08-23] MEDS ORDERED: METOLAZONE5 MG PO (16:57)
[2016-08-23] MEDS ORDERED: ADVAIR 250/501 DISK IH (16:57)
[2016-08-23] MEDS ORDERED: LOSARTAN POTASS25 MG PO (17:00)
[2016-08-23] MEDS ORDERED: PREDNISONE20 MG PO (17:00)
[2016-08-23 22:10] VITALS: BP 115/55
[2016-08-24 01:28] LABS: TROP-I INTERPRETATION NEGATIVE; TROPONIN-I 0.08 ng/mL (0.0-0.30)
[2016-08-24 03:52] VITALS: BP 109/55
[2016-08-24 04:46] LABS: HEMATOCRIT 47.3 % (38.0-50.0); MCH 28.7 PG (29.0-34.0); MCHC 31.7 G/DL (30.0-36.0); MCV 90.6 FL (86-99); MEAN PLAT.VOLUME 9.7 uM^3 (9.0-12.4); PLATELET COUNT 201 K/uL (156-360); RBC DIS.WIDTH-CV 16.5 % (11.8-14.6); RBC DIS.WIDTH-SD 54.7 % (39-53); RED BLOOD COUNT 5.22 M/uL (4.00-5.50); WHITE BLOOD COUNT 11.1 K/uL (4.1-10.2)
[2016-08-24 05:14] LABS: CHLORIDE 97 mEq/L (99-109); POTASSIUM 3.1 mEq/L (3.7-5.4); SODIUM 140 mEq/L (136-147)
[2016-08-24 05:16] LABS: GLUCOSE 127 mg/dL (70-99)
[2016-08-24 05:17] LABS: ANION GAP 13 MEQ/L (2-14)
[2016-08-24 05:20] LABS: GFR ESTIMATE (CALCULATED) 45 mL/min/
[2016-08-24 05:21] LABS: UREA NITROGEN (BUN) 34 mg/dL (9-23)
[2016-08-24 08:06] LABS: METH RESISTANT S AUREUS PCR NEGATIVE (NEGATIVE)
[2016-08-24 08:11] LABS: PROBE CHECK PASS; SPECIMEN PROCESSING CONTROL PASS
[2016-08-24 08:12] LABS: TROP-I INTERPRETATION NEGATIVE; TROPONIN-I 0.06 ng/mL (0.0-0.30)
[2016-08-24 08:15] VITALS: BP 98/53
[2016-08-24 08:33] LABS: POINT-OF-CARE METER ID UU13113831
[2016-08-24 11:46] VITALS: BP 101/54
[2016-08-24 12:48] LABS: POINT-OF-CARE METER ID UU13113831
== END 2016-08-24 16:00 | disposition home health service (06) ==
LOC: EME 14:32 → 5WEST 20:32 → EDOF 20:32 → 5WEST 21:44
PROVIDERS: Emergency Medicine; Hospitalist; Internal Medicine
DX: R07.9 Chest pain, unspecified (principal); N17.9 Acute kidney failure, unspecified; E87.6 Hypokalemia; E11.65 Type 2 diabetes mellitus with hyperglycemia; D72.829 Elevated white blood cell count, unspecified; I10 Essential (primary) hypertension; G47.33 Obstructive sleep apnea (adult) (pediatric); R91.8 Other nonspecific abnormal finding of lung field; E66.01 Morbid (severe) obesity due to excess calories; Z68.41 Body mass index [BMI] 40.0-44.9, adult; E78.5 Hyperlipidemia, unspecified; F17.200 Nicotine dependence, unspecified, uncomplicated
CPT/HCPCS: 71020; 80048; 82948; 84484; 85027; 85379; 85610; 85730; 87641; 93005; 94640; 94640 76; 94799; 99202; 99281; 99285; G0378; J1644; J1815; J7030; J7512

== ENCOUNTER 2017-03-27 09:27 | Inpatient (IN) | payer OTHER ==
[~2017-03-27] VITALS: Ht 172.7 cm; Wt 138.3 kg
[~2017-03-27 09:27] MED LIST changes: +METOLAZONE5 MG PO
[2017-03-27 09:51] LABS: HEMATOCRIT 44.1 % (38.0-50.0); MCH 29.4 PG (29.0-34.0); MCHC 31.3 G/DL (30.0-36.0); MCV 93.8 FL (86-99); MEAN PLAT.VOLUME 9.3 uM^3 (9.0-12.4); PLATELET COUNT 221 K/uL (156-360); RBC DIS.WIDTH-CV 17.5 % (11.8-14.6); RBC DIS.WIDTH-SD 59.5 % (39-53); WHITE BLOOD COUNT 10.3 K/uL (4.1-10.2)
[2017-03-27 10:02] LABS: CHLORIDE 98 mEq/L (99-109); POTASSIUM 3.2 mEq/L (3.7-5.4); SODIUM 138 mEq/L (136-147)
[2017-03-27 10:04] LABS: GLUCOSE 108 mg/dL (70-99)
[2017-03-27 10:05] LABS: ANION GAP 10 MEQ/L (2-14)
[2017-03-27 10:08] LABS: GFR ESTIMATE (CALCULATED) 45 mL/min/
[2017-03-27 10:09] LABS: UREA NITROGEN (BUN) 27 mg/dL (9-23)
[2017-03-27 10:14] LABS: TROP-I INTERPRETATION NEGATIVE; TROPONIN-I 0.07 ng/mL (0.0-0.30)
[2017-03-27] MEDS ORDERED: ELIQUIS5 MG PO (12:57)
[2017-03-27] MEDS ORDERED: LASIX40 MG PO (13:00)
[2017-03-27] MEDS ORDERED: ATROVENT 00.5 MG/2.5 IH (13:05)
[2017-03-27 17:34] LABS: TROP-I INTERPRETATION NEGATIVE; TROPONIN-I 0.24 ng/mL (0.0-0.30)
[2017-03-27 19:20] VITALS: BP 104/53
[2017-03-27 22:33] LABS: POINT-OF-CARE METER ID UU14314088
[2017-03-27 23:00] VITALS: BP 117/60
[2017-03-28 03:30] VITALS: BP 116/58
[2017-03-28 05:28] LABS: HEMATOCRIT 43.6 % (38.0-50.0); MCH 28.9 PG (29.0-34.0); MCHC 30.7 G/DL (30.0-36.0); MCV 94.2 FL (86-99); MEAN PLAT.VOLUME 9.8 uM^3 (9.0-12.4); PLATELET COUNT 214 K/uL (156-360); RBC DIS.WIDTH-CV 17.2 % (11.8-14.6); RBC DIS.WIDTH-SD 58.1 % (39-53); RED BLOOD COUNT 4.63 M/uL (4.00-5.50); WHITE BLOOD COUNT 7.9 K/uL (4.1-10.2)
[2017-03-28 05:46] LABS: TROP-I INTERPRETATION NEGATIVE; TROPONIN-I 0.08 ng/mL (0.0-0.30)
[2017-03-28 05:58] LABS: ALKALINE PHOSPHATASE 78 IU/L (3-129); ANION GAP 9 MEQ/L (2-14); CHLORIDE 97 MEQ/L (99-109); GFR ESTIMATE (CALCULATED) 49 mL/min/; SAMPLE HEMOLYSIS CHECK 0; SAMPLE ICTERIC CHECK 0; SAMPLE LIPEMIA CHECK 0; SODIUM 137 MEQ/L (136-147); TOTAL BILIRUBIN 0.7 MG/DL (0.0-1.0); UREA NITROGEN (BUN) 30 mg/dL (9-23)
[2017-03-28 05:59] LABS: GLUCOSE 181 mg/dL (70-99); POTASSIUM 4.2 MEQ/L (3.7-5.4)
[2017-03-28 08:02] LABS: POINT-OF-CARE METER ID UU13113698
[2017-03-28 09:30] VITALS: BP 120/58
[2017-03-28] MEDS ORDERED: AZITHROMYCIN500 M1 PO (10:38)
[2017-03-28] MEDS ORDERED: MEDROL DOSEPAK4 MG PO (10:38)
[2017-03-28 11:57] LABS: POINT-OF-CARE METER ID UU13113698
== END 2017-03-28 14:17 | disposition home or self-care (01) | DRG 189 ==
LOC: EME 09:27 → EDOF 12:48 → ENRESERV 13:57 → 4EAST 19:16
PROVIDERS: Internal Medicine; Internal Medicine Cardiovascular Disease
PROC: 5A09357 Assistance with Respiratory Ventilation, Less than 24 Consecutive Hours, Continuous Positive Airway Pressure (ICD-10-PCS; principal; 2017-03-27)
DX: J96.20 Acute and chronic respiratory failure, unspecified whether with hypoxia or hypercapnia (principal); J44.1 Chronic obstructive pulmonary disease with (acute) exacerbation; Z99.81 Dependence on supplemental oxygen; N17.9 Acute kidney failure, unspecified; I95.9 Hypotension, unspecified; M54.2 Cervicalgia; I48.0 Paroxysmal atrial fibrillation; I48.92 Unspecified atrial flutter; E11.22 Type 2 diabetes mellitus with diabetic chronic kidney disease; E11.42 Type 2 diabetes mellitus with diabetic polyneuropathy; E11.51 Type 2 diabetes mellitus with diabetic peripheral angiopathy without gangrene; I13.0 Hypertensive heart and chronic kidney disease with heart failure and stage 1 through stage 4 chronic kidney disease, or unspecified chronic kidney disease; I50.9 Heart failure, unspecified; N18.3 Chronic kidney disease, stage 3 (moderate); R10.9 Unspecified abdominal pain; E87.6 Hypokalemia; M47.9 Spondylosis, unspecified; G47.33 Obstructive sleep apnea (adult) (pediatric); E78.5 Hyperlipidemia, unspecified; I25.10 Atherosclerotic heart disease of native coronary artery without angina pectoris; K21.9 Gastro-esophageal reflux disease without esophagitis; F17.210 Nicotine dependence, cigarettes, uncomplicated; E66.01 Morbid (severe) obesity due to excess calories; Z68.42 Body mass index [BMI] 45.0-49.9, adult; I25.2 Old myocardial infarction; Z79.01 Long term (current) use of anticoagulants; Z79.4 Long term (current) use of insulin; Z85.118 Personal history of other malignant neoplasm of bronchus and lung; Z92.3 Personal history of irradiation; Z95.0 Presence of cardiac pacemaker; Z95.5 Presence of coronary angioplasty implant and graft; Z87.442 Personal history of urinary calculi
CPT/HCPCS: 70450; 70490; 71020; 74176; 80048; 80053; 82272; 82948; 83605; 83880; 84484; 85027; 85730; 87040; 87641; 93005; 94640; 94640 76; 94799; 99202; 99281; 99285; J1815; J7030; J7512

== ENCOUNTER 2017-04-15 17:37 | Inpatient (IN) | payer OTHER ==
[~2017-04-15] VITALS: Ht 172.7 cm; Wt 140.4 kg
[~2017-04-15 17:37] MED LIST changes: +ATROVENT 00.5 MG/2.5 IH; +AZITHROMYCIN500 M1 PO; +ELIQUIS5 MG PO; +LASIX40 MG PO
[2017-04-15 18:54] LABS: BASOPHIL (%) 0.4 % (0-1); EOSINOPHIL (%) 2.2 % (0-5); EOSINOPHIL COUNT 0.2 K/uL (0-0.3); HEMATOCRIT 43.4 % (38.0-50.0); HEMOGLOBIN 13.7 G/DL (12.5-16.6); IMMATURE GRANULOCYTE (%) 0.3 % (0.0-0.7); LYMPHOCYTE (%) 14.4 % (15-42); LYMPHOCYTE COUNT 1.6 K/uL (1.0-2.8); MCH 29.7 PG (29.0-34.0); MCHC 31.6 G/DL (30.0-36.0); MCV 94.1 FL (86-99); MONOCYTE (%) 7.8 % (3-12); MONOCYTE COUNT 0.8 K/uL (0-0.8); NEUTROPHIL (%) 74.9 % (45-76); NEUTROPHIL COUNT 8.1 K/uL (1.8-6.4); PLATELET COUNT 177 K/uL (156-360); RBC DIS.WIDTH-CV 17.1 % (11.8-14.6); RED BLOOD COUNT 4.61 M/uL (4.00-5.50); WHITE BLOOD COUNT 10.8 K/uL (4.1-10.2)
[2017-04-15 19:05] LABS: ALBUMIN 2.9 g/dL (3.2-4.8); CHLORIDE 96 mEq/L (99-109); POTASSIUM 3.4 mEq/L (3.7-5.4); SODIUM 142 mEq/L (136-147)
[2017-04-15 19:06] LABS: MAGNESIUM 1.8 mg/dL (1.3-2.7)
[2017-04-15 19:08] LABS: GLUCOSE 168 mg/dL (70-99); TOTAL PROTEIN 6.8 g/dL (6.4-8.3)
[2017-04-15 19:10] LABS: TOTAL BILIRUBIN 0.6 mg/dL (0.0-1.0)
[2017-04-15 19:11] LABS: ALKALINE PHOSPHATASE 77 IU/L (3-129); CREATININE 2.2 mg/dL (0.6-1.3); GFR ESTIMATE (CALCULATED) 31 mL/min/ (58.99-99999)
[2017-04-15 19:12] LABS: UREA NITROGEN (BUN) 29 mg/dL (9-23)
[2017-04-15 19:13] LABS: AST (GOT) 17 IU/L (2-34)
[2017-04-15 19:14] LABS: ALT (GPT) 17 IU/L (3-49)
[2017-04-15 19:15] LABS: TROP-I INTERPRETATION NEGATIVE; TROPONIN-I 0.04 ng/mL (0.0-0.30)
[2017-04-15] MEDS ORDERED: TRAZODONE HCL50 MG PO (21:46)
[2017-04-15] MEDS ORDERED: CARTIA XT120 MG PO (21:47)
[2017-04-15] MEDS ORDERED: DIVALPROEX SOD250 M1 PO (21:48)
[2017-04-16] VITALS (8 sets, daily range): BP systolic 93–110; BP diastolic 50–70
[2017-04-16 01:09] LABS: TROP-I INTERPRETATION NEGATIVE; TROPONIN-I 0.05 ng/mL (0.0-0.30)
[2017-04-16 05:31] LABS: HEMATOCRIT 42.5 % (38.0-50.0); HEMOGLOBIN 13.1 G/DL (12.5-16.6); MCH 28.8 PG (29.0-34.0); MCHC 30.8 G/DL (30.0-36.0); MCV 93.4 FL (86-99); PLATELET COUNT 177 K/uL (156-360); RBC DIS.WIDTH-CV 17.3 % (11.8-14.6); RBC DIS.WIDTH-SD 59.9 % (39-53); RED BLOOD COUNT 4.55 M/uL (4.00-5.50); WHITE BLOOD COUNT 10.5 K/uL (4.1-10.2)
[2017-04-16 05:48] LABS: TROP-I INTERPRETATION NEGATIVE; TROPONIN-I 0.06 ng/mL (0.0-0.30)
[2017-04-16 06:34] LABS: CHLORIDE 97 MEQ/L (99-109); CREATININE 1.8 MG/DL (0.6-1.3); GFR ESTIMATE (CALCULATED) 40 mL/min/ (58.99-99999); GLUCOSE 169 mg/dL (70-99); POTASSIUM 3.5 MEQ/L (3.7-5.4); SODIUM 142 MEQ/L (136-147); UREA NITROGEN (BUN) 28 mg/dL (9-23)
[2017-04-17 03:45] VITALS: BP 115/66
[2017-04-17 06:31] LABS: HEMATOCRIT 40.9 % (38.0-50.0); MCH 29.7 PG (29.0-34.0); MCHC 31.8 G/DL (30.0-36.0); MCV 93.6 FL (86-99); PLATELET COUNT 197 K/uL (156-360); RBC DIS.WIDTH-CV 16.7 % (11.8-14.6); RBC DIS.WIDTH-SD 57.3 % (39-53); RED BLOOD COUNT 4.37 M/uL (4.00-5.50); WHITE BLOOD COUNT 12.3 K/uL (4.1-10.2)
[2017-04-17 06:54] LABS: CHLORIDE 92 MEQ/L (99-109); CREATININE 1.9 MG/DL (0.6-1.3); GFR ESTIMATE (CALCULATED) 37 mL/min/ (58.99-99999); GLUCOSE 173 mg/dL (70-99); POTASSIUM 3.8 MEQ/L (3.7-5.4); SODIUM 135 MEQ/L (136-147); UREA NITROGEN (BUN) 38 mg/dL (9-23)
[2017-04-17 09:30] VITALS: BP 120/60
[2017-04-17 11:09] VITALS: BP 118/63
[2017-04-17 16:00] VITALS: BP 111/59
[2017-04-17 19:52] VITALS: BP 136/73
[2017-04-17 23:04] VITALS: BP 109/569
[2017-04-18 04:00] VITALS: BP 119/58
[2017-04-18 05:37] LABS: HEMATOCRIT 41.6 % (38.0-50.0); HEMOGLOBIN 13.2 G/DL (12.5-16.6); MCH 29.3 PG (29.0-34.0); MCHC 31.7 G/DL (30.0-36.0); MCV 92.2 FL (86-99); PLATELET COUNT 181 K/uL (156-360); RBC DIS.WIDTH-CV 16.1 % (11.8-14.6); RBC DIS.WIDTH-SD 54.6 % (39-53); RED BLOOD COUNT 4.51 M/uL (4.00-5.50); WHITE BLOOD COUNT 11.3 K/uL (4.1-10.2)
[2017-04-18 06:08] LABS: CHLORIDE 92 MEQ/L (99-109); CREATININE 1.5 MG/DL (0.6-1.3); GFR ESTIMATE (CALCULATED) 49 mL/min/ (58.99-99999); GLUCOSE 200 mg/dL (70-99); POTASSIUM 3.6 MEQ/L (3.7-5.4); SODIUM 137 MEQ/L (136-147); UREA NITROGEN (BUN) 44 mg/dL (9-23)
[2017-04-18 08:30] VITALS: BP 128/62
[2017-04-18] MEDS ORDERED: LOPRESSOR50 MG PO (08:46)
[2017-04-18] MEDS ORDERED: LASIX40 MG PO (08:49)
[2017-04-18] MEDS ORDERED: AZITHROMYCIN500 M1 PO (08:52)
[2017-04-18] MEDS ORDERED: MEDROL DOSEPAK4 MG PO (08:53)
[2017-04-18 11:06] VITALS: BP 106/64
== END 2017-04-18 13:21 | disposition home health service (06) | DRG 308 ==
LOC: EME 17:37 → EDOF 23:22 → 4EAST 23:22 → ENRESERV 23:25 → 4EAST 04-16 01:14
PROVIDERS: Emergency Medicine; Hospitalist; Internal Medicine
PROC: 5A09357 Assistance with Respiratory Ventilation, Less than 24 Consecutive Hours, Continuous Positive Airway Pressure (ICD-10-PCS; principal; 2017-04-17)
DX: I48.91 Unspecified atrial fibrillation (principal); J96.21 Acute and chronic respiratory failure with hypoxia; J44.1 Chronic obstructive pulmonary disease with (acute) exacerbation; N17.9 Acute kidney failure, unspecified; J44.0 Chronic obstructive pulmonary disease with (acute) lower respiratory infection; J20.9 Acute bronchitis, unspecified; I13.0 Hypertensive heart and chronic kidney disease with heart failure and stage 1 through stage 4 chronic kidney disease, or unspecified chronic kidney disease; I50.31 Acute diastolic (congestive) heart failure; N18.3 Chronic kidney disease, stage 3 (moderate); I48.92 Unspecified atrial flutter; I95.9 Hypotension, unspecified; E87.6 Hypokalemia; E11.22 Type 2 diabetes mellitus with diabetic chronic kidney disease; E11.42 Type 2 diabetes mellitus with diabetic polyneuropathy; E11.622 Type 2 diabetes mellitus with other skin ulcer; L97.811 Non-pressure chronic ulcer of other part of right lower leg limited to breakdown of skin; I27.20 Pulmonary hypertension, unspecified; I87.8 Other specified disorders of veins; E78.5 Hyperlipidemia, unspecified; I25.10 Atherosclerotic heart disease of native coronary artery without angina pectoris; K21.9 Gastro-esophageal reflux disease without esophagitis; G47.33 Obstructive sleep apnea (adult) (pediatric); I89.0 Lymphedema, not elsewhere classified; F17.200 Nicotine dependence, unspecified, uncomplicated; E66.01 Morbid (severe) obesity due to excess calories; Z68.42 Body mass index [BMI] 45.0-49.9, adult; I25.2 Old myocardial infarction; Z99.81 Dependence on supplemental oxygen; Z95.0 Presence of cardiac pacemaker; Z95.5 Presence of coronary angioplasty implant and graft; Z85.118 Personal history of other malignant neoplasm of bronchus and lung; Z92.3 Personal history of irradiation; Z87.442 Personal history of urinary calculi; Z79.01 Long term (current) use of anticoagulants
CPT/HCPCS: 71010; 71020; 80048; 80053; 80198; 82948; 83735; 83880; 84443; 84484; 85025; 85027; 87641; 93005; 93971; 94640; 94640 76; 94660; 94760; 94799; 99202; 99281; 99285; A6212; A6260; J0696; J1815; J1940; J3480; J7040; J7050; J7512

== ENCOUNTER 2017-05-10 08:44 | Inpatient (IN) | payer OTHER ==
[~2017-05-10] VITALS: Ht 172.7 cm; Wt 124.0 kg
[~2017-05-10 08:44] MED LIST changes: +CARTIA XT120 MG PO; +DIVALPROEX SOD250 M1 PO; +LOPRESSOR50 MG PO; +TRAZODONE HCL50 MG PO
[2017-05-10 10:00] LABS: HEMOGLOBIN 13.5 G/DL (12.5-16.6); MCH 29.2 PG (29.0-34.0); MCHC 31.4 G/DL (30.0-36.0); MCV 92.9 FL (86-99); PLATELET COUNT 217 K/uL (156-360); RBC DIS.WIDTH-CV 16.9 % (11.8-14.6); RBC DIS.WIDTH-SD 57.5 % (39-53); RED BLOOD COUNT 4.63 M/uL (4.00-5.50)
[2017-05-10 10:06] LABS: INTER. NORMALIZED RATIO 1.6
[2017-05-10 10:08] LABS: PTT 35.6 SEC (25-37)
[2017-05-10 10:18] LABS: CHLORIDE 90 mEq/L (99-109); POTASSIUM 2.7 mEq/L (3.7-5.4); SODIUM 139 mEq/L (136-147)
[2017-05-10 10:19] LABS: TROP-I INTERPRETATION NEGATIVE; TROPONIN-I 0.03 ng/mL (0.0-0.30)
[2017-05-10 10:20] LABS: GLUCOSE 75 mg/dL (70-99)
[2017-05-10 10:23] LABS: CREATININE 1.9 mg/dL (0.6-1.3); GFR ESTIMATE (CALCULATED) 37 mL/min/ (58.99-99999)
[2017-05-10 10:24] LABS: UREA NITROGEN (BUN) 40 mg/dL (9-23)
[2017-05-10 11:19] LABS: THEOPHYLLINE 8.4 MCG/ML (10-20); VALPROIC ACID (DEPAKOTE) < 3.0 MCG/ML (50-100)
[2017-05-10 15:14] LABS: TROP-I INTERPRETATION NEGATIVE; TROPONIN-I 0.03 ng/mL (0.0-0.30)
[2017-05-10 15:54] VITALS: BP 101/50
[2017-05-10 16:16] LABS: HEMOGLOBIN A1c (GLYCOHEMOGLOB) 6.8 % HGB (Below 5.7)
[2017-05-10] MEDS ORDERED: TOPROL XL100 MG PO (16:20)
[2017-05-10] MEDS ORDERED: LASIX40 MG PO (16:21)
[2017-05-10 17:44] LABS: APPEARANCE CLEAR ((CLEAR)); BILIRUBIN NEGATIVE; BLOOD NEGATIVE; COLOR YELLOW ((YELLOW)); GLUCOSE (STRIP) NEGATIVE; KETONES NEGATIVE; LEUKOCYTES NEGATIVE; NITRITE NEGATIVE; PROTEIN (STRIP) NEGATIVE; SPECIFIC GRAVITY 1.009 (1.000-1.030); UCUL ADDED? NO; UROBILINOGEN 0.2 MG/DL (0.2-1.0)
[2017-05-10 21:44] VITALS: BP 103/54
[2017-05-11 00:52] VITALS: BP 95/53
[2017-05-11 03:00] VITALS: BP 92/51
[2017-05-11 06:06] LABS: HEMATOCRIT 43.7 % (38.0-50.0); MCHC 29.7 G/DL (30.0-36.0); PLATELET COUNT 219 K/uL (156-360); RBC DIS.WIDTH-CV 16.9 % (11.8-14.6); RBC DIS.WIDTH-SD 58.5 % (39-53); RED BLOOD COUNT 4.65 M/uL (4.00-5.50); WHITE BLOOD COUNT 9.4 K/uL (4.1-10.2)
[2017-05-11 06:31] LABS: CHLORIDE 97 MEQ/L (99-109); CREATININE 1.9 MG/DL (0.6-1.3); GFR ESTIMATE (CALCULATED) 37 mL/min/ (58.99-99999); GLUCOSE 69 mg/dL (70-99); SODIUM 141 MEQ/L (136-147); UREA NITROGEN (BUN) 38 mg/dL (9-23)
[2017-05-11 06:32] LABS: POTASSIUM 3.6 MEQ/L (3.7-5.4)
[2017-05-11 08:01] VITALS: BP 101/56
[2017-05-11 11:35] VITALS: BP 101/54
[2017-05-11 14:34] VITALS: BP 111/54
[2017-05-11 22:58] VITALS: BP 111/50
[2017-05-12 05:07] LABS: CHLORIDE 99 mEq/L (99-109)
[2017-05-12 05:08] LABS: MAGNESIUM 2.3 mg/dL (1.3-2.7); SODIUM 139 mEq/L (136-147)
[2017-05-12 05:09] LABS: GLUCOSE 64 mg/dL (70-99)
[2017-05-12 05:13] LABS: CREATININE 1.7 mg/dL (0.6-1.3); GFR ESTIMATE (CALCULATED) 42 mL/min/ (58.99-99999)
[2017-05-12 05:14] LABS: UREA NITROGEN (BUN) 35 mg/dL (9-23)
[2017-05-12 07:58] VITALS: BP 118/65
[2017-05-12 12:35] VITALS: BP 107/67
[2017-05-12 15:55] VITALS: BP 107/64
[2017-05-12 21:03] VITALS: BP 136/60
[2017-05-13 00:27] VITALS: BP 165/98
[2017-05-13 03:18] LABS: BASE EXCESS 10.3 mEq/L (-3 to +3); CARBOXY HGB 2.9 % (0-5); METHEMOGLOBIN 0.7 % (0-1.5); PO2 69 mm Hg (80-100); pH 7.42 (7.35-7.45)
[2017-05-13 03:19] LABS: COMMENTS - BLOOD GASES C+A+; DEVICE NCH; O2 FLOW 8 L/MIN; PCO2 57 mm Hg (35-45); SITE RR
[2017-05-13 04:28] VITALS: BP 148/90
[2017-05-13 07:18] VITALS: BP 130/60
[2017-05-13 10:52] LABS: BASE EXCESS 12.1 mEq/L (-3 to +3); BICARBONATE 39.3 mEq/L (22-26); CARBOXY HGB 3.2 % (0-5); METHEMOGLOBIN 1.4 % (0-1.5); PCO2 62 mm Hg (35-45); PO2 60 mm Hg (80-100); pH 7.41 (7.35-7.45)
[2017-05-13 10:53] LABS: COMMENTS - BLOOD GASES NAC+; DEVICE HFNC; O2 FLOW 12 L/MIN; SITE RR
[2017-05-13 11:38] VITALS: BP 107/58
[2017-05-13 14:30] LABS: APPEARANCE CLEAR ((CLEAR)); BILIRUBIN NEGATIVE; BLOOD NEGATIVE; COLOR YELLOW ((YELLOW)); GLUCOSE (STRIP) 50; KETONES NEGATIVE; LEUKOCYTES NEGATIVE; NITRITE NEGATIVE; PROTEIN (STRIP) NEGATIVE; SPECIFIC GRAVITY 1.014 (1.000-1.030); UROBILINOGEN 0.2 MG/DL (0.2-1.0)
[2017-05-13 15:05] LABS: BASOPHIL (%) 0.2 % (0-1); EOSINOPHIL (%) 0.7 % (0-5); EOSINOPHIL COUNT 0.1 K/uL (0-0.3); HEMATOCRIT 44.8 % (38.0-50.0); HEMOGLOBIN 13.3 G/DL (12.5-16.6); IMMATURE GRANULOCYTE (%) 0.7 % (0.0-0.7); LYMPHOCYTE (%) 7.5 % (15-42); LYMPHOCYTE COUNT 1.1 K/uL (1.0-2.8); MCH 28.1 PG (29.0-34.0); MCHC 29.7 G/DL (30.0-36.0); MCV 94.5 FL (86-99); MONOCYTE (%) 9.8 % (3-12); MONOCYTE COUNT 1.5 K/uL (0-0.8); NEUTROPHIL (%) 81.1 % (45-76); NEUTROPHIL COUNT 12.1 K/uL (1.8-6.4); PLATELET COUNT 249 K/uL (156-360); RBC DIS.WIDTH-CV 17.1 % (11.8-14.6); RBC DIS.WIDTH-SD 59.5 % (39-53); RED BLOOD COUNT 4.74 M/uL (4.00-5.50); WHITE BLOOD COUNT 14.9 K/uL (4.1-10.2)
[2017-05-13 15:57] VITALS: BP 146/71
[2017-05-13 16:13] LABS: CHLORIDE 98 MEQ/L (99-109); CREATININE 1.7 MG/DL (0.6-1.3); GFR ESTIMATE (CALCULATED) 42 mL/min/ (58.99-99999); POTASSIUM 4.1 MEQ/L (3.7-5.4); SODIUM 143 MEQ/L (136-147); UREA NITROGEN (BUN) 31 mg/dL (9-23)
[2017-05-13 16:21] LABS: CARBON DIOXIDE (BICARBONATE) > 40.0 MEQ/L (20-31); GLUCOSE 86 mg/dL (70-99)
[2017-05-13 23:30] VITALS: BP 130/61
[2017-05-14] VITALS (13 sets, daily range): BP systolic 92–139; BP diastolic 44–71
[2017-05-14 10:41] LABS: BASE EXCESS 12.4 mEq/L (-3 to +3); BICARBONATE 41.8 mEq/L (22-26); CARBOXY HGB 2.8 % (0-5); METHEMOGLOBIN 1.4 % (0-1.5); O2 FLOW 14 L/MIN; PCO2 74 mm Hg (35-45); PO2 48 mm Hg (80-100); SITE RR; pH 7.36 (7.35-7.45)
[2017-05-14 10:42] LABS: DEVICE NCH
[2017-05-14 15:10] LABS: BASOPHIL (%) 0.2 % (0-1); EOSINOPHIL (%) 0.2 % (0-5); HEMOGLOBIN 12.4 G/DL (12.5-16.6); IMMATURE GRANULOCYTE (%) 0.7 % (0.0-0.7); LYMPHOCYTE (%) 4.1 % (15-42); LYMPHOCYTE COUNT 0.7 K/uL (1.0-2.8); MCH 29.2 PG (29.0-34.0); MCHC 30.2 G/DL (30.0-36.0); MCV 96.5 FL (86-99); MONOCYTE (%) 8.7 % (3-12); MONOCYTE COUNT 1.4 K/uL (0-0.8); NEUTROPHIL (%) 86.1 % (45-76); NEUTROPHIL COUNT 13.8 K/uL (1.8-6.4); PLATELET COUNT 226 K/uL (156-360); RBC DIS.WIDTH-CV 17.5 % (11.8-14.6); RED BLOOD COUNT 4.25 M/uL (4.00-5.50)
[2017-05-14 15:36] LABS: CHLORIDE 100 MEQ/L (99-109); CREATININE 1.5 MG/DL (0.6-1.3); GFR ESTIMATE (CALCULATED) 49 mL/min/ (58.99-99999); GLUCOSE 121 mg/dL (70-99); POTASSIUM 3.8 MEQ/L (3.7-5.4); SODIUM 143 MEQ/L (136-147); UREA NITROGEN (BUN) 32 mg/dL (9-23)
[2017-05-14 17:19] LABS: BASE EXCESS 14.4 mEq/L (-3 to +3); BICARBONATE 41.5 mEq/L (22-26); CARBOXY HGB 2.6 % (0-5); METHEMOGLOBIN 1.6 % (0-1.5); pH 7.42 (7.35-7.45)
[2017-05-14 17:20] LABS: PCO2 64 mm Hg (35-45); PO2 66 mm Hg (80-100); SITE LR
[2017-05-14 17:21] LABS: COMMENTS - BLOOD GASES A+C+; DEVICE VENT; FI02 100 %; MECHANICAL RATE 20 resp/min; MODE AC; PEEP 10 CM/H20; TIDAL VOLUME 500 ML; TOTAL RESP RATE 20 resp/min
[2017-05-14 20:20] LABS: HIGH-SENS C-REACTIVE PROTEIN > 8.00 MG/DL (0.02-0.20)
[2017-05-15] VITALS (20 sets, daily range): BP systolic 92–116; BP diastolic 44–67
[2017-05-15 11:40] LABS: HIGH-SENS C-REACTIVE PROTEIN > 8.00 MG/DL (0.02-0.20)
[2017-05-16] VITALS (24 sets, daily range): BP systolic 104–161; BP diastolic 49–75
[2017-05-17] VITALS (24 sets, daily range): BP systolic 134–191; BP diastolic 52–82
[2017-05-17 05:43] LABS: BASOPHIL (%) 0 % (0-1); EOSINOPHIL (%) 0 % (0-5); HEMATOCRIT 41.6 % (38.0-50.0); HEMOGLOBIN 12.7 G/DL (12.5-16.6); IMMATURE GRANULOCYTE (%) 0.6 % (0.0-0.7); LYMPHOCYTE (%) 6.4 % (15-42); LYMPHOCYTE COUNT 0.4 K/uL (1.0-2.8); MCH 28.5 PG (29.0-34.0); MCHC 30.5 G/DL (30.0-36.0); MCV 93.3 FL (86-99); MONOCYTE (%) 6.2 % (3-12); MONOCYTE COUNT 0.4 K/uL (0-0.8); NEUTROPHIL (%) 86.8 % (45-76); NEUTROPHIL COUNT 5.6 K/uL (1.8-6.4); PLATELET COUNT 227 K/uL (156-360); RBC DIS.WIDTH-CV 16.9 % (11.8-14.6); RBC DIS.WIDTH-SD 57.3 % (39-53); RED BLOOD COUNT 4.46 M/uL (4.00-5.50); WHITE BLOOD COUNT 6.4 K/uL (4.1-10.2)
[2017-05-17 06:25] LABS: CHLORIDE 102 MEQ/L (99-109); CREATININE 1.4 MG/DL (0.6-1.3); GFR ESTIMATE (CALCULATED) 53 mL/min/ (58.99-99999); POTASSIUM 4.2 MEQ/L (3.7-5.4); SODIUM 146 MEQ/L (136-147)
[2017-05-17 06:27] LABS: GLUCOSE 199 mg/dL (70-99); UREA NITROGEN (BUN) 53 mg/dL (9-23)
[2017-05-18] VITALS (24 sets, daily range): BP systolic 136–174; BP diastolic 51–76
[2017-05-18 05:34] LABS: BASOPHIL (%) 0.1 % (0-1); EOSINOPHIL (%) 0 % (0-5); HEMATOCRIT 41.9 % (38.0-50.0); HEMOGLOBIN 12.3 G/DL (12.5-16.6); LYMPHOCYTE (%) 6.3 % (15-42); LYMPHOCYTE COUNT 0.5 K/uL (1.0-2.8); MCH 27.7 PG (29.0-34.0); MCHC 29.4 G/DL (30.0-36.0); MCV 94.4 FL (86-99); MONOCYTE (%) 6.4 % (3-12); MONOCYTE COUNT 0.5 K/uL (0-0.8); NEUTROPHIL (%) 86.2 % (45-76); NEUTROPHIL COUNT 6.3 K/uL (1.8-6.4); PLATELET COUNT 239 K/uL (156-360); RBC DIS.WIDTH-CV 16.9 % (11.8-14.6); RED BLOOD COUNT 4.44 M/uL (4.00-5.50); WHITE BLOOD COUNT 7.3 K/uL (4.1-10.2)
[2017-05-18 05:48] LABS: BASE EXCESS 13.3 mEq/L (-3 to +3); BICARBONATE 40.6 mEq/L (22-26); CARBOXY HGB 2.2 % (0-5); COMMENTS - BLOOD GASES C+; METHEMOGLOBIN 1.4 % (0-1.5); PCO2 64 mm Hg (35-45); PO2 76 mm Hg (80-100); SITE RR; pH 7.41 (7.35-7.45)
[2017-05-18 05:49] LABS: DEVICE VENT; FI02 60 %; MECHANICAL RATE 20 resp/min; MODE AC; PEEP 12 CM/H20; TIDAL VOLUME 500 ML; TOTAL RESP RATE 22 resp/min
[2017-05-18 06:09] LABS: CHLORIDE 104 MEQ/L (99-109); CREATININE 1.5 MG/DL (0.6-1.3); GFR ESTIMATE (CALCULATED) 49 mL/min/ (58.99-99999); GLUCOSE 212 mg/dL (70-99); POTASSIUM 4.7 MEQ/L (3.7-5.4); SODIUM 147 MEQ/L (136-147); UREA NITROGEN (BUN) 58 mg/dL (9-23)
[2017-05-19] VITALS (21 sets, daily range): BP systolic 136–180; BP diastolic 49–85
[2017-05-19 12:28] LABS: BASE EXCESS 14.3 mEq/L (-3 to +3); BICARBONATE 41.4 mEq/L (22-26); CARBOXY HGB 2.6 % (0-5); METHEMOGLOBIN 1.6 % (0-1.5); PCO2 61 mm Hg (35-45); PO2 64 mm Hg (80-100); pH 7.44 (7.35-7.45)
[2017-05-19 12:29] LABS: COMMENTS - BLOOD GASES A+C+; DEVICE VENT; FI02 50 %; MECHANICAL RATE 20 resp/min; MODE AC/VC; PEEP 6 CM/H20; SITE LR; TIDAL VOLUME 500 ML; TOTAL RESP RATE 20 resp/min
[2017-05-20] VITALS (24 sets, daily range): BP systolic 92–155; BP diastolic 40–91
[2017-05-20 04:24] LABS: HEMATOCRIT 44.8 % (38.0-50.0); HEMOGLOBIN 13.6 G/DL (12.5-16.6); MCH 28.8 PG (29.0-34.0); MCHC 30.4 G/DL (30.0-36.0); MCV 94.7 FL (86-99); PLATELET COUNT 200 K/uL (156-360); RBC DIS.WIDTH-CV 16.4 % (11.8-14.6); RBC DIS.WIDTH-SD 57.5 % (39-53); RED BLOOD COUNT 4.73 M/uL (4.00-5.50); WHITE BLOOD COUNT 10.1 K/uL (4.1-10.2)
[2017-05-20 04:33] LABS: CHLORIDE 107 mEq/L (99-109); POTASSIUM 4.9 mEq/L (3.7-5.4); SODIUM 151 mEq/L (136-147)
[2017-05-20 04:35] LABS: GLUCOSE 140 mg/dL (70-99)
[2017-05-20 04:39] LABS: CREATININE 1.3 mg/dL (0.6-1.3); GFR ESTIMATE (CALCULATED) 58 mL/min/ (58.99-99999); UREA NITROGEN (BUN) 56 mg/dL (9-23)
[2017-05-20 06:23] LABS: BICARBONATE 42.1 mEq/L (22-26); CARBOXY HGB 2.4 % (0-5); METHEMOGLOBIN 1.6 % (0-1.5); PCO2 62 mm Hg (35-45); PO2 63 mm Hg (80-100); pH 7.44 (7.35-7.45)
[2017-05-20 06:24] LABS: SITE RR
[2017-05-20 06:25] LABS: DEVICE VENT; FI02 60 %; MECHANICAL RATE 20 resp/min; MODE AC; PEEP 8 CM/H20; TIDAL VOLUME 500 ML; TOTAL RESP RATE 20 resp/min
[2017-05-21] VITALS (24 sets, daily range): BP systolic 80–142; BP diastolic 30–83
[2017-05-22] VITALS (24 sets, daily range): BP systolic 88–155; BP diastolic 32–82
[2017-05-22 06:13] LABS: BASOPHIL (%) 0.1 % (0-1); EOSINOPHIL (%) 0 % (0-5); HEMATOCRIT 44.8 % (38.0-50.0); HEMOGLOBIN 13.2 G/DL (12.5-16.6); LYMPHOCYTE (%) 7.7 % (15-42); LYMPHOCYTE COUNT 0.9 K/uL (1.0-2.8); MCH 28.1 PG (29.0-34.0); MCHC 29.5 G/DL (30.0-36.0); MCV 95.3 FL (86-99); MONOCYTE (%) 6.1 % (3-12); MONOCYTE COUNT 0.7 K/uL (0-0.8); NEUTROPHIL (%) 85.1 % (45-76); NEUTROPHIL COUNT 9.6 K/uL (1.8-6.4); PLATELET COUNT 182 K/uL (156-360); RBC DIS.WIDTH-CV 16.5 % (11.8-14.6); RBC DIS.WIDTH-SD 58.1 % (39-53); WHITE BLOOD COUNT 11.3 K/uL (4.1-10.2)
[2017-05-22 06:45] LABS: CHLORIDE 106 MEQ/L (99-109); CREATININE 1.2 MG/DL (0.6-1.3); GFR ESTIMATE (CALCULATED) > 59 mL/min/ (58.99-99999); GLUCOSE 171 mg/dL (70-99); POTASSIUM 4.6 MEQ/L (3.7-5.4); SODIUM 153 MEQ/L (136-147); UREA NITROGEN (BUN) 51 mg/dL (9-23)
[2017-05-23] VITALS (22 sets, daily range): BP systolic 90–139; BP diastolic 45–69
[2017-05-24] VITALS (13 sets, daily range): BP systolic 77–150; BP diastolic 39–88
[2017-05-24 10:38] LABS: BASE EXCESS 9.1 mEq/L (-3 to +3); CARBOXY HGB 2.8 % (0-5); METHEMOGLOBIN 1.3 % (0-1.5); PO2 71 mm Hg (80-100); pH 7.43 (7.35-7.45)
[2017-05-24 10:39] LABS: BICARBONATE 35.2 mEq/L (22-26); COMMENTS - BLOOD GASES A+C+; DEVICE NCHHF; FI02 50 %; O2 FLOW 25 L/MIN; PCO2 53 mm Hg (35-45); SITE LR; TOTAL RESP RATE 18 resp/min
[2017-05-24 10:54] LABS: BASOPHIL (%) 0.1 % (0-1); EOSINOPHIL (%) 0 % (0-5); HEMATOCRIT 43.4 % (38.0-50.0); HEMOGLOBIN 13.3 G/DL (12.5-16.6); LYMPHOCYTE (%) 4.6 % (15-42); LYMPHOCYTE COUNT 0.6 K/uL (1.0-2.8); MCHC 30.6 G/DL (30.0-36.0); MCV 94.6 FL (86-99); MONOCYTE (%) 2.9 % (3-12); MONOCYTE COUNT 0.4 K/uL (0-0.8); NEUTROPHIL (%) 91.4 % (45-76); NEUTROPHIL COUNT 11.3 K/uL (1.8-6.4); PLATELET COUNT 192 K/uL (156-360); RBC DIS.WIDTH-CV 16.4 % (11.8-14.6); RBC DIS.WIDTH-SD 56.8 % (39-53); RED BLOOD COUNT 4.59 M/uL (4.00-5.50); WHITE BLOOD COUNT 12.3 K/uL (4.1-10.2)
[2017-05-24 11:29] LABS: ALBUMIN 2.5 G/DL (3.2-4.8); ALKALINE PHOSPHATASE 39 IU/L (3-129); ALT (GPT) 19 IU/L (3-49); AST (GOT) 18 IU/L (2-34); CHLORIDE 109 MEQ/L (99-109); CREATININE 0.9 MG/DL (0.6-1.3); GFR ESTIMATE (CALCULATED) > 59 mL/min/ (58.99-99999); GLUCOSE 95 mg/dL (70-99); HIGH-SENS C-REACTIVE PROTEIN 0.94 MG/DL (0.02-0.20); MAGNESIUM 2.4 mg/dl (1.3-2.7); PHOSPHORUS 2.9 mg/dL (2.5-4.9); POTASSIUM 3.9 MEQ/L (3.7-5.4); SODIUM 149 MEQ/L (136-147); TOTAL BILIRUBIN 0.8 MG/DL (0.0-1.0); TOTAL PROTEIN 4.9 G/DL (6.4-8.3); UREA NITROGEN (BUN) 48 mg/dL (9-23)
[2017-05-25] VITALS (11 sets, daily range): BP systolic 107–150; BP diastolic 50–92
[2017-05-25 06:35] LABS: BASOPHIL (%) 0.2 % (0-1); EOSINOPHIL (%) 0.2 % (0-5); HEMATOCRIT 45.8 % (38.0-50.0); HEMOGLOBIN 13.8 G/DL (12.5-16.6); IMMATURE GRANULOCYTE (%) 0.9 % (0.0-0.7); LYMPHOCYTE (%) 11.8 % (15-42); LYMPHOCYTE COUNT 1.4 K/uL (1.0-2.8); MCHC 30.1 G/DL (30.0-36.0); MCV 92.9 FL (86-99); MONOCYTE (%) 8.6 % (3-12); NEUTROPHIL (%) 78.3 % (45-76); NEUTROPHIL COUNT 9.3 K/uL (1.8-6.4); PLATELET COUNT 216 K/uL (156-360); RBC DIS.WIDTH-CV 16.1 % (11.8-14.6); RBC DIS.WIDTH-SD 54.4 % (39-53); RED BLOOD COUNT 4.93 M/uL (4.00-5.50); WHITE BLOOD COUNT 11.9 K/uL (4.1-10.2)
[2017-05-25 07:12] LABS: CHLORIDE 108 MEQ/L (99-109); GFR ESTIMATE (CALCULATED) > 59 mL/min/ (58.99-99999); MAGNESIUM 2.3 mg/dl (1.3-2.7); PHOSPHORUS 3.6 mg/dL (2.5-4.9); POTASSIUM 3.8 MEQ/L (3.7-5.4); SODIUM 149 MEQ/L (136-147); UREA NITROGEN (BUN) 41 mg/dL (9-23)
[2017-05-25 07:36] LABS: GLUCOSE 49 mg/dL (70-99)
[2017-05-26 03:38] VITALS: BP 162/79
[2017-05-26 04:56] LABS: BASOPHIL (%) 0.2 % (0-1); EOSINOPHIL (%) 0 % (0-5); HEMATOCRIT 46.9 % (38.0-50.0); HEMOGLOBIN 14.5 G/DL (12.5-16.6); LYMPHOCYTE (%) 4.1 % (15-42); LYMPHOCYTE COUNT 0.5 K/uL (1.0-2.8); MCH 28.7 PG (29.0-34.0); MCHC 30.9 G/DL (30.0-36.0); MCV 92.7 FL (86-99); MONOCYTE (%) 2.1 % (3-12); MONOCYTE COUNT 0.3 K/uL (0-0.8); NEUTROPHIL (%) 92.6 % (45-76); NEUTROPHIL COUNT 11.5 K/uL (1.8-6.4); PLATELET COUNT 198 K/uL (156-360); RBC DIS.WIDTH-CV 16.3 % (11.8-14.6); RBC DIS.WIDTH-SD 54.5 % (39-53); RED BLOOD COUNT 5.06 M/uL (4.00-5.50); WHITE BLOOD COUNT 12.4 K/uL (4.1-10.2)
[2017-05-26 05:17] LABS: CHLORIDE 112 mEq/L (99-109); SODIUM 144 mEq/L (136-147)
[2017-05-26 05:18] LABS: MAGNESIUM 2.1 mg/dL (1.3-2.7)
[2017-05-26 05:19] LABS: GLUCOSE 77 mg/dL (70-99)
[2017-05-26 05:23] LABS: CREATININE 0.8 mg/dL (0.6-1.3); GFR ESTIMATE (CALCULATED) > 59 mL/min/ (58.99-99999); PHOSPHORUS 3.7 mg/dL (2.5-4.9)
[2017-05-26 05:24] LABS: UREA NITROGEN (BUN) 36 mg/dL (9-23)
[2017-05-26 05:30] LABS: POTASSIUM 4.9 mEq/L (3.7-5.4)
[2017-05-26 09:03] VITALS: BP 137/81
[2017-05-26 11:06] VITALS: BP 141/82
[2017-05-26 17:17] VITALS: BP 146/81
[2017-05-26 19:01] VITALS: BP 169/78
[2017-05-26 22:11] VITALS: BP 152/68
[2017-05-27 03:33] VITALS: BP 164/99
[2017-05-27 06:13] LABS: BASOPHIL (%) 0.1 % (0-1); EOSINOPHIL (%) 0 % (0-5); HEMATOCRIT 46.5 % (38.0-50.0); HEMOGLOBIN 14.2 G/DL (12.5-16.6); IMMATURE GRANULOCYTE (%) 1.1 % (0.0-0.7); LYMPHOCYTE (%) 6.8 % (15-42); LYMPHOCYTE COUNT 0.9 K/uL (1.0-2.8); MCH 28.2 PG (29.0-34.0); MCHC 30.5 G/DL (30.0-36.0); MCV 92.3 FL (86-99); MONOCYTE (%) 3.1 % (3-12); MONOCYTE COUNT 0.4 K/uL (0-0.8); NEUTROPHIL (%) 88.9 % (45-76); NEUTROPHIL COUNT 11.2 K/uL (1.8-6.4); PLATELET COUNT 192 K/uL (156-360); RBC DIS.WIDTH-CV 16.1 % (11.8-14.6); RED BLOOD COUNT 5.04 M/uL (4.00-5.50); WHITE BLOOD COUNT 12.6 K/uL (4.1-10.2)
[2017-05-27 06:40] LABS: CHLORIDE 109 MEQ/L (99-109); CREATININE 0.8 MG/DL (0.6-1.3); GFR ESTIMATE (CALCULATED) > 59 mL/min/ (58.99-99999); GLUCOSE 158 mg/dL (70-99); MAGNESIUM 1.9 mg/dl (1.3-2.7); PHOSPHORUS 2.9 mg/dL (2.5-4.9); POTASSIUM 5.3 MEQ/L (3.7-5.4); SODIUM 144 MEQ/L (136-147); UREA NITROGEN (BUN) 33 mg/dL (9-23)
[2017-05-27 07:55] LABS: POTASSIUM 4.6 MEQ/L (3.7-5.4)
[2017-05-27 08:52] VITALS: BP 151/94
[2017-05-27 12:07] VITALS: BP 159/70
[2017-05-27 15:52] VITALS: BP 130/63
[2017-05-27 18:56] VITALS: BP 155/79
[2017-05-27 22:28] VITALS: BP 124/69
[2017-05-28] VITALS (7 sets, daily range): BP systolic 97–135; BP diastolic 55–71
[2017-05-28 06:02] LABS: BASOPHIL (%) 0.1 % (0-1); EOSINOPHIL (%) 0.2 % (0-5); HEMATOCRIT 45.4 % (38.0-50.0); HEMOGLOBIN 13.8 G/DL (12.5-16.6); IMMATURE GRANULOCYTE (%) 0.6 % (0.0-0.7); LYMPHOCYTE COUNT 1.5 K/uL (1.0-2.8); MCH 28.2 PG (29.0-34.0); MCHC 30.4 G/DL (30.0-36.0); MCV 92.8 FL (86-99); MONOCYTE (%) 7.4 % (3-12); MONOCYTE COUNT 0.9 K/uL (0-0.8); NEUTROPHIL (%) 79.7 % (45-76); NEUTROPHIL COUNT 9.8 K/uL (1.8-6.4); PLATELET COUNT 204 K/uL (156-360); RBC DIS.WIDTH-CV 16.5 % (11.8-14.6); RBC DIS.WIDTH-SD 55.2 % (39-53); RED BLOOD COUNT 4.89 M/uL (4.00-5.50); WHITE BLOOD COUNT 12.3 K/uL (4.1-10.2)
[2017-05-28 06:08] LABS: CHLORIDE 104 MEQ/L (99-109); MAGNESIUM 1.9 mg/dl (1.3-2.7); POTASSIUM 4.2 MEQ/L (3.7-5.4); SODIUM 142 MEQ/L (136-147)
[2017-05-28 06:15] LABS: CREATININE 0.7 MG/DL (0.6-1.3); GFR ESTIMATE (CALCULATED) > 59 mL/min/ (58.99-99999); GLUCOSE 88 mg/dL (70-99); PHOSPHORUS 3.2 mg/dL (2.5-4.9); UREA NITROGEN (BUN) 33 mg/dL (9-23)
[2017-05-29 03:30] VITALS: BP 135/73
[2017-05-29 05:12] LABS: BASOPHIL (%) 0.1 % (0-1); EOSINOPHIL (%) 0.1 % (0-5); HEMATOCRIT 47.1 % (38.0-50.0); HEMOGLOBIN 14.9 G/DL (12.5-16.6); IMMATURE GRANULOCYTE (%) 0.8 % (0.0-0.7); MCH 29.2 PG (29.0-34.0); MCHC 31.6 G/DL (30.0-36.0); MCV 92.2 FL (86-99); MONOCYTE (%) 4.3 % (3-12); MONOCYTE COUNT 0.6 K/uL (0-0.8); NEUTROPHIL (%) 86.7 % (45-76); NEUTROPHIL COUNT 11.2 K/uL (1.8-6.4); PLATELET COUNT 218 K/uL (156-360); RBC DIS.WIDTH-CV 16.8 % (11.8-14.6); RBC DIS.WIDTH-SD 55.6 % (39-53); RED BLOOD COUNT 5.11 M/uL (4.00-5.50)
[2017-05-29 05:37] LABS: CHLORIDE 101 MEQ/L (99-109); CREATININE 0.9 MG/DL (0.6-1.3); GFR ESTIMATE (CALCULATED) > 59 mL/min/ (58.99-99999); GLUCOSE 91 mg/dL (70-99); MAGNESIUM 1.9 mg/dl (1.3-2.7); PHOSPHORUS 3.3 mg/dL (2.5-4.9); POTASSIUM 4.4 MEQ/L (3.7-5.4); SODIUM 142 MEQ/L (136-147); UREA NITROGEN (BUN) 32 mg/dL (9-23)
[2017-05-29 07:41] VITALS: BP 134/69
[2017-05-29 11:20] VITALS: BP 135/66
[2017-05-29 15:56] VITALS: BP 125/70
[2017-05-29 19:00] VITALS: BP 150/73
[2017-05-29 23:00] VITALS: BP 132/68
[2017-05-30 03:15] VITALS: BP 121/60
[2017-05-30 05:24] LABS: BASOPHIL (%) 0.2 % (0-1); EOSINOPHIL (%) 0.7 % (0-5); EOSINOPHIL COUNT 0.1 K/uL (0-0.3); IMMATURE GRANULOCYTE (%) 1.1 % (0.0-0.7); LYMPHOCYTE (%) 12.9 % (15-42); LYMPHOCYTE COUNT 2.2 K/uL (1.0-2.8); MCHC 30.6 G/DL (30.0-36.0); MCV 91.4 FL (86-99); MONOCYTE COUNT 1.6 K/uL (0-0.8); NEUTROPHIL (%) 76.1 % (45-76); NEUTROPHIL COUNT 13.2 K/uL (1.8-6.4); PLATELET COUNT 251 K/uL (156-360); RBC DIS.WIDTH-CV 17.1 % (11.8-14.6); RBC DIS.WIDTH-SD 55.8 % (39-53); RED BLOOD COUNT 5.36 M/uL (4.00-5.50); WHITE BLOOD COUNT 17.4 K/uL (4.1-10.2)
[2017-05-30 06:03] LABS: CHLORIDE 102 MEQ/L (99-109); CREATININE 1.1 MG/DL (0.6-1.3); GFR ESTIMATE (CALCULATED) > 59 mL/min/ (58.99-99999); MAGNESIUM 1.9 mg/dl (1.3-2.7); PHOSPHORUS 3.3 mg/dL (2.5-4.9); SODIUM 146 MEQ/L (136-147); UREA NITROGEN (BUN) 28 mg/dL (9-23)
[2017-05-30 06:04] LABS: GLUCOSE 42 mg/dL (70-99)
[2017-05-30 08:08] VITALS: BP 144/75
[2017-05-30 12:19] VITALS: BP 140/68
[2017-05-30 16:30] VITALS: BP 147/67
[2017-05-30 19:25] VITALS: BP 146/79
[2017-05-31 00:05] VITALS: BP 118/82
[2017-05-31 04:30] VITALS: BP 105/66
[2017-05-31 06:02] LABS: BASOPHIL (%) 0.1 % (0-1); EOSINOPHIL (%) 1.1 % (0-5); EOSINOPHIL COUNT 0.2 K/uL (0-0.3); HEMATOCRIT 48.9 % (38.0-50.0); HEMOGLOBIN 14.9 G/DL (12.5-16.6); IMMATURE GRANULOCYTE (%) 0.9 % (0.0-0.7); LYMPHOCYTE (%) 14.5 % (15-42); LYMPHOCYTE COUNT 2.1 K/uL (1.0-2.8); MCH 27.9 PG (29.0-34.0); MCHC 30.5 G/DL (30.0-36.0); MCV 91.4 FL (86-99); MONOCYTE (%) 6.4 % (3-12); NEUTROPHIL COUNT 11.4 K/uL (1.8-6.4); PLATELET COUNT 202 K/uL (156-360); RBC DIS.WIDTH-CV 17.3 % (11.8-14.6); RBC DIS.WIDTH-SD 57.1 % (39-53); RED BLOOD COUNT 5.35 M/uL (4.00-5.50); WHITE BLOOD COUNT 14.8 K/uL (4.1-10.2)
[2017-05-31 06:25] LABS: CHLORIDE 102 MEQ/L (99-109); GFR ESTIMATE (CALCULATED) > 59 mL/min/ (58.99-99999); GLUCOSE 64 mg/dL (70-99); PHOSPHORUS 3.6 mg/dL (2.5-4.9); POTASSIUM 3.9 MEQ/L (3.7-5.4); SODIUM 145 MEQ/L (136-147); UREA NITROGEN (BUN) 26 mg/dL (9-23)
[2017-05-31 08:00] VITALS: BP 118/64
[2017-05-31] MEDS ORDERED: MYCOSTATIN 100,60 ML MM (08:44)
[2017-05-31] MEDS ORDERED: LEVOFLOXACIN500 MG PO (08:44)
[2017-05-31] MEDS ORDERED: DUONEB 2.5-0.5 M3 ML AEROSOL (08:44)
[2017-05-31] MEDS ORDERED: SEROQUEL12.5 MG PO (08:45)
[2017-05-31] MEDS ORDERED: DOCUSATE SODIU100 MG PO (08:46)
[2017-05-31] MEDS ORDERED: PREDNISONE10 MG PO (08:47)
[2017-05-31 11:33] VITALS: BP 106/52
[2017-05-31 12:28] LABS: BICARBONATE 39.3 mEq/L (22-26); CARBOXY HGB 2.8 % (0-5); DEVICE NC; METHEMOGLOBIN 1.4 % (0-1.5); O2 FLOW 4 L/MIN; PCO2 54 mm Hg (35-45); PO2 61 mm Hg (80-100); SITE RR; pH 7.47 (7.35-7.45)
[2017-05-31 19:10] VITALS: BP 117/65
[2017-06-01] VITALS (7 sets, daily range): BP systolic 99–134; BP diastolic 57–94
[2017-06-01 05:28] LABS: BASOPHIL (%) 0.1 % (0-1); EOSINOPHIL (%) 0.8 % (0-5); EOSINOPHIL COUNT 0.1 K/uL (0-0.3); HEMATOCRIT 46.2 % (38.0-50.0); HEMOGLOBIN 14.3 G/DL (12.5-16.6); IMMATURE GRANULOCYTE (%) 0.9 % (0.0-0.7); LYMPHOCYTE (%) 17.4 % (15-42); MCH 28.5 PG (29.0-34.0); MCV 92.2 FL (86-99); MONOCYTE (%) 6.5 % (3-12); MONOCYTE COUNT 0.7 K/uL (0-0.8); NEUTROPHIL (%) 74.3 % (45-76); NEUTROPHIL COUNT 8.4 K/uL (1.8-6.4); PLATELET COUNT 183 K/uL (156-360); RBC DIS.WIDTH-CV 17.6 % (11.8-14.6); RBC DIS.WIDTH-SD 59.3 % (39-53); RED BLOOD COUNT 5.01 M/uL (4.00-5.50); WHITE BLOOD COUNT 11.3 K/uL (4.1-10.2)
[2017-06-01 05:55] LABS: CHLORIDE 96 MEQ/L (99-109); CREATININE 1.1 MG/DL (0.6-1.3); GFR ESTIMATE (CALCULATED) > 59 mL/min/ (58.99-99999); GLUCOSE 57 mg/dL (70-99); MAGNESIUM 2.1 mg/dl (1.3-2.7); PHOSPHORUS 4.5 mg/dL (2.5-4.9); POTASSIUM 3.4 MEQ/L (3.7-5.4); SODIUM 142 MEQ/L (136-147); UREA NITROGEN (BUN) 30 mg/dL (9-23)
[2017-06-01 22:41] LABS: BASE EXCESS 13.4 mEq/L (-3 to +3); BICARBONATE 40.3 mEq/L (22-26); COMMENTS - BLOOD GASES C+; DEVICE BIPAP 20/15; METHEMOGLOBIN 1.4 % (0-1.5); O2 FLOW 4 L/MIN; PCO2 58 mm Hg (35-45); PO2 60 mm Hg (80-100); SITE RR; pH 7.45 (7.35-7.45)
[2017-06-02 00:15] VITALS: BP 134/94
[2017-06-02 03:54] VITALS: BP 132/67
[2017-06-02 04:49] LABS: BASOPHIL (%) 0.1 % (0-1); EOSINOPHIL (%) 1.3 % (0-5); EOSINOPHIL COUNT 0.2 K/uL (0-0.3); HEMATOCRIT 45.7 % (38.0-50.0); HEMOGLOBIN 14.3 G/DL (12.5-16.6); IMMATURE GRANULOCYTE (%) 0.7 % (0.0-0.7); LYMPHOCYTE (%) 18.6 % (15-42); LYMPHOCYTE COUNT 2.2 K/uL (1.0-2.8); MCH 28.7 PG (29.0-34.0); MCHC 31.3 G/DL (30.0-36.0); MCV 91.8 FL (86-99); MONOCYTE (%) 5.9 % (3-12); MONOCYTE COUNT 0.7 K/uL (0-0.8); NEUTROPHIL (%) 73.4 % (45-76); NEUTROPHIL COUNT 8.7 K/uL (1.8-6.4); PLATELET COUNT 154 K/uL (156-360); RBC DIS.WIDTH-CV 17.3 % (11.8-14.6); RBC DIS.WIDTH-SD 57.4 % (39-53); RED BLOOD COUNT 4.98 M/uL (4.00-5.50); WHITE BLOOD COUNT 11.8 K/uL (4.1-10.2)
[2017-06-02 05:06] LABS: CHLORIDE 95 mEq/L (99-109); POTASSIUM 3.5 mEq/L (3.7-5.4); SODIUM 143 mEq/L (136-147)
[2017-06-02 05:07] LABS: MAGNESIUM 1.6 mg/dL (1.3-2.7)
[2017-06-02 05:11] LABS: PHOSPHORUS 3.8 mg/dL (2.5-4.9)
[2017-06-02 05:12] LABS: CREATININE 1.1 mg/dL (0.6-1.3); GFR ESTIMATE (CALCULATED) > 59 mL/min/ (58.99-99999)
[2017-06-02 05:13] LABS: UREA NITROGEN (BUN) 33 mg/dL (9-23)
[2017-06-02 05:24] LABS: GLUCOSE 99 mg/dL (70-99)
[2017-06-02 09:32] VITALS: BP 100/66
[2017-06-02 12:06] VITALS: BP 110/68
[2017-06-02 16:00] VITALS: BP 123/75
[2017-06-02 20:00] VITALS: BP 126/79
[2017-06-03] VITALS (7 sets, daily range): BP systolic 107–144; BP diastolic 60–84
[2017-06-03 04:56] LABS: BASOPHIL (%) 0.1 % (0-1); EOSINOPHIL (%) 0.1 % (0-5); HEMATOCRIT 46.9 % (38.0-50.0); HEMOGLOBIN 14.9 G/DL (12.5-16.6); IMMATURE GRANULOCYTE (%) 0.9 % (0.0-0.7); LYMPHOCYTE (%) 8.5 % (15-42); MCH 29.2 PG (29.0-34.0); MCHC 31.8 G/DL (30.0-36.0); MONOCYTE (%) 3.3 % (3-12); MONOCYTE COUNT 0.4 K/uL (0-0.8); NEUTROPHIL (%) 87.1 % (45-76); NEUTROPHIL COUNT 9.8 K/uL (1.8-6.4); PLATELET COUNT 128 K/uL (156-360); RBC DIS.WIDTH-CV 17.3 % (11.8-14.6); RBC DIS.WIDTH-SD 58.6 % (39-53); WHITE BLOOD COUNT 11.2 K/uL (4.1-10.2)
[2017-06-03 05:25] LABS: CHLORIDE 94 mEq/L (99-109); POTASSIUM 4.3 mEq/L (3.7-5.4); SODIUM 140 mEq/L (136-147)
[2017-06-03 05:26] LABS: MAGNESIUM 1.8 mg/dL (1.3-2.7)
[2017-06-03 05:28] LABS: GLUCOSE 154 mg/dL (70-99)
[2017-06-03 05:31] LABS: CREATININE 1.2 mg/dL (0.6-1.3); GFR ESTIMATE (CALCULATED) > 59 mL/min/ (58.99-99999)
[2017-06-03 05:32] LABS: UREA NITROGEN (BUN) 32 mg/dL (9-23)
[2017-06-04 05:07] VITALS: BP 110/62
[2017-06-04 05:51] LABS: HEMATOCRIT 45.6 % (38.0-50.0); HEMOGLOBIN 14.2 G/DL (12.5-16.6); MCHC 31.1 G/DL (30.0-36.0); MCV 93.1 FL (86-99); PLATELET COUNT 127 K/uL (156-360); RBC DIS.WIDTH-CV 17.7 % (11.8-14.6); RBC DIS.WIDTH-SD 59.8 % (39-53)
[2017-06-04 06:22] LABS: CHLORIDE 92 MEQ/L (99-109); GFR ESTIMATE (CALCULATED) > 59 mL/min/ (58.99-99999); GLUCOSE 63 mg/dL (70-99); SODIUM 144 MEQ/L (136-147); UREA NITROGEN (BUN) 27 mg/dL (9-23)
[2017-06-04 06:23] LABS: CARBON DIOXIDE (BICARBONATE) > 40.0 MEQ/L (20-31); POTASSIUM 3.1 MEQ/L (3.7-5.4)
[2017-06-04 07:27] VITALS: BP 134/68
[2017-06-04 12:03] VITALS: BP 110/63
[2017-06-04 14:20] LABS: BASE EXCESS 15.9 mEq/L (-3 to +3); BICARBONATE 42.9 mEq/L (22-26); CARBOXY HGB 2.8 % (0-5); COMMENTS - BLOOD GASES A+C+; DEVICE NC; METHEMOGLOBIN 1.4 % (0-1.5); O2 FLOW 3 L/MIN; PCO2 59 mm Hg (35-45); PO2 68 mm Hg (80-100); SITE RR; TOTAL RESP RATE 20 resp/min; pH 7.47 (7.35-7.45)
[2017-06-04 17:27] LABS: CHLORIDE 94 MEQ/L (99-109); CREATININE 1.3 MG/DL (0.6-1.3); GFR ESTIMATE (CALCULATED) 58 mL/min/ (58.99-99999); SODIUM 139 MEQ/L (136-147); UREA NITROGEN (BUN) 33 mg/dL (9-23)
[2017-06-04 17:28] LABS: GLUCOSE 190 mg/dL (70-99); POTASSIUM 4.6 MEQ/L (3.7-5.4)
[2017-06-04 19:45] VITALS: BP 160/62
[2017-06-04 23:06] VITALS: BP 115/70
[2017-06-05 04:00] VITALS: BP 129/69
[2017-06-05 05:36] LABS: HEMATOCRIT 45.5 % (38.0-50.0); HEMOGLOBIN 13.8 G/DL (12.5-16.6); MCH 28.3 PG (29.0-34.0); MCHC 30.3 G/DL (30.0-36.0); MCV 93.2 FL (86-99); PLATELET COUNT 122 K/uL (156-360); RBC DIS.WIDTH-CV 17.8 % (11.8-14.6); RED BLOOD COUNT 4.88 M/uL (4.00-5.50); WHITE BLOOD COUNT 13.3 K/uL (4.1-10.2)
[2017-06-05 06:06] LABS: CARBON DIOXIDE (BICARBONATE) > 40.0 MEQ/L (20-31); CHLORIDE 90 MEQ/L (99-109); CREATININE 1.2 MG/DL (0.6-1.3); GFR ESTIMATE (CALCULATED) > 59 mL/min/ (58.99-99999); GLUCOSE 87 mg/dL (70-99); POTASSIUM 3.3 MEQ/L (3.7-5.4); SODIUM 141 MEQ/L (136-147); UREA NITROGEN (BUN) 30 mg/dL (9-23)
[2017-06-05 09:48] VITALS: BP 116/77
[2017-06-05] MEDS ORDERED: CORDARONE200 MG PO (11:34)
[2017-06-05 12:07] VITALS: BP 116/74
== END 2017-06-05 16:15 | DRG 166 ==
LOC: EME 08:44 → 4EAST 12:48 → 4WEST 12:48 → EDOF 12:48 → ENRESERV 12:54 → 4EAST 15:41 → 4WEST 05-14 13:47 → ENRESERV 05-25 18:09 → 4EAST 05-25 19:59
PROVIDERS: Emergency Medicine; Hospitalist; Internal Medicine; Internal Medicine Critical Care Medicine; Internal Medicine Pulmonary Disease; Physician Assistant; Surgery
PROC: 5A09357 Assistance with Respiratory Ventilation, Less than 24 Consecutive Hours, Continuous Positive Airway Pressure (ICD-10-PCS; principal; 2017-05-13)
PROC: 0B9F8ZX Drainage of Right Lower Lung Lobe, Via Natural or Artificial Opening Endoscopic, Diagnostic (ICD-10-PCS; 2017-05-14)
PROC: 0B9J8ZX Drainage of Left Lower Lung Lobe, Via Natural or Artificial Opening Endoscopic, Diagnostic (ICD-10-PCS; 2017-05-14)
PROC: 5A1955Z Respiratory Ventilation, Greater than 96 Consecutive Hours (ICD-10-PCS; 2017-05-14)
PROC: 0BH18EZ Insertion of Endotracheal Airway into Trachea, Via Natural or Artificial Opening Endoscopic (ICD-10-PCS; 2017-05-14)
DX: J96.21 Acute and chronic respiratory failure with hypoxia (principal); J44.0 Chronic obstructive pulmonary disease with (acute) lower respiratory infection; J44.1 Chronic obstructive pulmonary disease with (acute) exacerbation; J15.1 Pneumonia due to Pseudomonas; J96.22 Acute and chronic respiratory failure with hypercapnia; I48.91 Unspecified atrial fibrillation; I83.218 Varicose veins of right lower extremity with both ulcer of other part of lower extremity and inflammation; L97.811 Non-pressure chronic ulcer of other part of right lower leg limited to breakdown of skin; E66.01 Morbid (severe) obesity due to excess calories; I13.0 Hypertensive heart and chronic kidney disease with heart failure and stage 1 through stage 4 chronic kidney disease, or unspecified chronic kidney disease; I50.33 Acute on chronic diastolic (congestive) heart failure; N17.9 Acute kidney failure, unspecified; N18.3 Chronic kidney disease, stage 3 (moderate); Z68.42 Body mass index [BMI] 45.0-49.9, adult; I25.10 Atherosclerotic heart disease of native coronary artery without angina pectoris; I25.2 Old myocardial infarction; Z99.81 Dependence on supplemental oxygen; Z91.19 Patient's noncompliance with other medical treatment and regimen; E11.22 Type 2 diabetes mellitus with diabetic chronic kidney disease; F17.200 Nicotine dependence, unspecified, uncomplicated; E78.5 Hyperlipidemia, unspecified; E87.6 Hypokalemia; G40.909 Epilepsy, unspecified, not intractable, without status epilepticus; Z95.5 Presence of coronary angioplasty implant and graft; G92 Toxic encephalopathy; Z92.3 Personal history of irradiation; E86.0 Dehydration; G47.33 Obstructive sleep apnea (adult) (pediatric); K21.9 Gastro-esophageal reflux disease without esophagitis; Z95.0 Presence of cardiac pacemaker; E11.649 Type 2 diabetes mellitus with hypoglycemia without coma; I95.9 Hypotension, unspecified; E11.65 Type 2 diabetes mellitus with hyperglycemia; E87.0 Hyperosmolality and hypernatremia; D69.6 Thrombocytopenia, unspecified; R04.0 Epistaxis; Z91.14 Patient's other noncompliance with medication regimen; Z79.4 Long term (current) use of insulin; Z85.118 Personal history of other malignant neoplasm of bronchus and lung; Z79.899 Other long term (current) drug therapy; Z79.01 Long term (current) use of anticoagulants
CPT/HCPCS: 36600; 70450; 71045; 71046; 71250; 74018; 80048; 80048 91; 80053; 80164; 80198; 81003; 82803; 82948; 83036; 83605; 83735; 84100; 84145 90; 84484; 84999; 85025; 85027; 85379; 85610; 85730; 86141; 87040; 87070; 87077; 87086; 87186; 87205; 87641; 92610 GN; 93005; 94002; 94003; 94010; 94640; 94640 76; 94660; 94667; 94668; 94760; 94799; 95819; 97530 GO; 97530 GP; 99202; 99281; 99285; J0360; J0456; J0692; J1160; J1815; J1940; J2270; J2405; J2543; J2704; J2920; J2930; J3010; J3370; J3480; J7030; J7040; J7050; J7512